=== PATIENT | female | born 1975 | race Caucasian/White ===

== ENCOUNTER 2019-06-05 06:05 | Outpatient (CLI) | payer SELFPAY ==
--- NOTE | 2019-06-05 07:21 | ECG_ITS ---
NAME OF STUDY: LEXISCAN SESTAMIBI STRESS TEST INDICATION: Chest Pain, PROCEDURE: At the baseline, the EKG revealed normal sinus rhythm with a poor R wave progression. Possible old anteroseptal PR. The baseline blood pressure was 130/80 mm Hg with a heart rate of76 beats/min. Lexiscan was infused over a period of 20 seconds. A total of 0.4 milligrams of Lexiscan was infused. The stress phase was continued for a total of 5 minutes. Heart rate at the end of the stress phase was 94 with a blood pressure 142/83. The EKG at the peak infusion revealed no significant changes. Sestamibi was injected 20 seconds after the Lexiscan infusion. Blood pressure at the end of the recovery phase was 134/80 with a heart rate of 90 per minute. CONCLUSION: 1. No significant EKG changes with the LexiScan infusion 2. No LexiScan induced chest pain or cardiac arrhythmia 3. Normal blood pressure and heart rate response 4. Sestamibi/sestamibi perfusion scan pending; see separate report. Electronically Signed On 06-06-2019 14:44:59 CDT by Bassem Salazar M.D. [email or web address]
--- NOTE | 2019-06-05 07:22 | NMCV_ITS ---
NM christiano perf SPECT r/s* [id number] Roxie Case Age: 44 Gender: F : 1975 Exam Date: 06/05/2019 08:07 Ordering Phys: Marilyn Carmona MD Technologist: ISAÍAS Prince Exam Location: [facility] Indications: Chest pain STRESS TEST Please see separate stress [facility] for full findings IMAGE PROTOCOL Rest/Stress 1 Lexiscan Day Radiopharmaceutical Dose (mCi) Administration Site Administered by Rest: Tc-99m 10.4 IV ISAÍAS Prince Sestamibi Stress:Tc-99m 32.4 IV ISAÍAS Davenport Sestamibi Rest: 05-Jun-2019 60 Discovery 630 Stress: 05-Jun-2019 45 Discovery 630 0.4mg Lexiscan. Images obtained in supine and prone position. SPECT RESULTS Technical Quality: Good Raw Data Analysis: Breast attenuation Image Corrections: No attenuation or motion correction applied Summed Stress Score: 7 Summed Rest Score: 7 Summed Difference Score: 3 PERFUSION FINDINGS Medium sized perfusion abnormality of mild to moderate severity of mid to apical inferior and apical lateral wall on rest images. There is small area of reversible perfusion abnormality in basal to mid inferior and mid to apical inferoseptal hermosillo on stress images with improved tracer uptake in inferoseptal hermosillo on prone stress images. FUNCTIONAL RESULTS (calculated via Gated SPECT) Stress Image LV EF (%): 40 Stress EDV (mL):100 TID: 1.23 Stress ESV (mL):60 FUNCTIONAL FINDINGS: The left ventricle is normal in size. Transient Ischemia Dilatation of 1.2. There is mildly reduced left ventricular global systolic function. The left ventricular ejection fraction is mildly reduced with a value of 40%. There is mild hypokinesis of inferior wall. IMPRESSIONS 1. Medium sized perfusion abnormality of mild to moderate severity of mid to apical inferior with reversible perfusion abnormality in basal to mid inferior and mid to apical inferoseptal hermosillo. 2. This likely represents attenuation artifact, however old myocardial infarction in right coronary artery territory with small area of brayden-infarct ischemia cannot be completely excluded. 3. The left ventricular ejection fraction is mildly reduced with a value of 40%. 4. There is mild hypokinesis of inferior wall. 5. No prior similar studies to compare. Shannon Ybarra MD (Electronically Signed) Final Date: 08 June 2019 18:48 S
[2019-06-05] MEDS: regadenoson 0.4 Mg/5 ml Syringe IVP (08:54)
[2019-06-05 09:07] VITALS: BP 134/82; PULSE 93
== END 2019-06-05 06:06 | disposition home or self-care (01) ==
PROVIDERS: Family Provider Internal Medicine; PCP Internal Medicine; Visit Provider Internal Medicine
DX: R07.9 Chest pain, unspecified (principal)
CPT/HCPCS: 78452; 93017; A9500; J2785

== ENCOUNTER 2019-08-28 10:57 | Outpatient (CLI) | payer SELFPAY ==
--- NOTE | 2019-08-28 11:02 | USCV_ITS ---
Roxie Case Age: 44 Gender: F : 1975 Exam Date: 08/28/2019 11:09 Ordering Phys: Marilyn Carmona MD Technologist: Marce Bai Exam Location: [facility] [place] Indication: SOB BP: 100 / 56 HR: 84 Rhythm: Sinus Technical Quality: Adequate MEASUREMENTS (Male / Female) Normal Values 2D ECHO LV Diastolic Diameter PLAX 3.6 cm 4.2 - 5.9 / 3.9 - 5.3 cm LV Systolic Diameter PLAX 2.8 cm LV Chamber Size 2.9 cm IVS Diastolic Thickness 1.0 cm 0.6 - 1.0 / 0.6 - 0.9 cm IVS Systolic Thickness 1.3 cm LVPW Diastolic Thickness 1.4 cm 0.6 - 1.0 / 0.6 - 0.9 cm LVPW Systolic Thickness 1.5 cm RV Chamber Size 3.4 cm LVOT Diameter 2.0 cm LV Ejection Fraction 2D Teich 44.3 % LV Ejection Fraction MOD 2C 55.2 % LV Ejection Fraction 2C AL 59.0 % LA Diameter 4.2 cm LA Width 2.7 cm LA Height 3.7 cm RA Width 4.2 cm RA Height 2.8 cm Aorta at Sinotubular Diameter 2.3 cm M-MODE LV Diastolic Diameter MM 5.0 cm 4.2 - 5.9 / 3.9 - 5.3 cm LV Systolic Diameter MM 3.5 cm LV Ejection Fraction MM Teich 57.5 % IVS Diastolic Thickness MM 1.4 cm 0.6 - 1.0 / 0.6 - 0.9 cm IVS Systolic Thickness MM 1.5 cm LVPW Diastolic Thickness MM 1.1 cm 0.6 - 1.0 / 0.6 - 0.9 cm LVPW Systolic Thickness MM 1.3 cm Aortic Annulus Diameter 3.4 cm LA Ao Ratio MM 1.2 MV E Point Septal Separation 0.8 cm DOPPLER AV Peak Velocity 156.0 cm/s LVOT Peak Velocity 121.0 cm/s AV Area Cont Eq vti 2.4 cm squared AV Area Cont Eq pk 2.4 cm squared MV Area PHT 5.0 cm squared Mitral E to A Ratio 0.8 MV E' Velocity 68.0 cm/s Mitral E to MV E' Ratio 4.6 Mitral E to LV E' Lateral Ratio 4.9 Mitral E to LV E' Septal Ratio 4.4 TR Peak Velocity 215.0 cm/s TR Peak Gradient 18.6 mmHg TV Peak E Velocity 62.0 cm/s Right Atrial Pressure 3.0 mmHg Pulmonary Artery Systolic Pressu 21.5 mmHg PV Peak Velocity 70.0 cm/s RV Acceleration Time 0.1 s RV Ejection Time 0.3 s RV AcT/ET 0.4 FINDINGS Left Ventricle Normal left ventricular size and systolic function, EF 58 %. No regional wall motion abnormalities. Right Ventricle The right ventricle is normal in size and function. Right Atrium The right atrium is normal in size. Left Atrium The left atrium is normal in size. Mitral Valve No gross abnormalities noted Aortic Valve Appears to be tricuspid with no significant abnormalities Tricuspid Valve No significant abnormalities Pulmonic Valve No gross abnormalities noted Pericardium Normal pericardium without effusion. Aorta Normal ascending aorta dimension. CONCLUSIONS Normal left ventricular size and systolic function, EF 58 %. No regional wall motion abnormalities. No significant stenotic or ureteral lesions Normal cardiac chamber sizes There is no pericardial effusion. There are no intracardiac masses. No previous study is available for comparison. Dr Bassem Salazar MD FACC (Electronically Signed) Final Date: 28 August 2019 16:14 S
== END 2019-08-28 10:58 | disposition home or self-care (01) ==
LOC: RAD 10:59
PROVIDERS: PCP Internal Medicine; Visit Provider Internal Medicine
DX: R06.02 Shortness of breath (principal)
CPT/HCPCS: 93306

== ENCOUNTER 2020-12-30 07:19 | Outpatient (CLI) | payer MEDICAID, SELFPAY ==
--- NOTE | 2020-12-30 07:22 | MM_ITS ---
WS: [id number] BILATERAL DIGITAL SCREENING MAMMOGRAPHY WITH CAD CLINICAL INFORMATION: SCREENING HISTORY: Screening mammogram. Bilateral breast soreness COMPARISON: TECHNIQUE: Bilateral CC and MLO views. FINDINGS: Scattered fibroglandular densities bilaterally. Punctate and lucent centered calcifications are stabl e. No suspicious focal mass, asymmetry, calcifications, or architectural distortion. No evidence of m alignancy. MM/[place] [id number] IMPRESSION: BI-RADS: 2-Benign FOLLOW UP: 1 Year Follow-up Recommend return to annual screening mammography.
== END 2020-12-30 07:20 | disposition home or self-care (01) ==
LOC: RADSHAW 07:21
PROVIDERS: PCP Internal Medicine; Visit Provider Internal Medicine
DX: Z12.31 Encounter for screening mammogram for malignant neoplasm of breast (principal)
CPT/HCPCS: 77067

== ENCOUNTER → 2021-01-27 14:14 | Outpatient (BNVA) | payer MEDICAID, SELFPAY | PROVIDERS: PCP Internal Medicine; Visit Provider Obstetrics & Gynecology | DX: N87.1 Moderate cervical dysplasia (principal) | CPT/HCPCS: 88305; 88307 ==

== ENCOUNTER → 2021-04-07 16:06 | Outpatient (BNVA) | payer MEDICAID, SELFPAY | PROVIDERS: PCP Internal Medicine; Visit Provider Obstetrics & Gynecology | DX: Z20.822 Contact with and (suspected) exposure to COVID-19 (principal) | CPT/HCPCS: 87635 ==

== ENCOUNTER 2021-04-25 12:46 | Observation (INO) | payer MEDICAID, SELFPAY ==
[2021-04-24 13:37] VITALS: BMI 37.8
[2021-04-25] VITALS (20 sets, daily range): BP systolic 103–153; BP diastolic 63–106; PULSE 74–101; RESP 10–18; TEMP 36.1–36.9; O2SAT 96–100
--- NOTE | 2021-04-25 06:25 | P.ANESASSM_ITS ---
Pre-Anesthetic Assessment Height/Weight: Height 1.63 m Weight 99.79 kg Preop Diagnosis: high grade dysplasia of cervix Operation Date: 03/28/21 07:50 Proposed Procedures p Laparoscopic Assist Vaginal Hysterectomy 91075 R87.612(Not Applicable) - Irais Marin MD Operation Date: 04/25/21 07:00 Proposed Procedures p Laparoscopic Assist Vaginal Hysterectomy(Not Applicable) - Irais Marin MD Familial anesthetic complications: Post op shivering Was Beta Andre taken within 24 hours: N/A Was Clonidine taken within 24 hours: N/A Last intake: > 8hrs Social No alcohol and No tobacco Exam alert, oriented x 3, clear to auscultation bilaterally and regular rate & rhythm Airway Cervical ROM: within normal limits Mallampati: Class II Dentition: full Pulmonary Chronic Obstructive Pulmonary Disease (hasn't required inhaler use in over 1 year) CV/HEM Hypertension Echo 2019 CONCLUSIONS ?Normal left ventricular size and systolic function, EF 58 %. ?No regional wall motion abnormalities. ?No significant stenotic or ureteral lesions ?Normal cardiac chamber sizes ?There is no pericardial effusion. ?There are no intracardiac masses. ?No previous study is available for comparison. myocardial perfusion scan 2019 IMPRESSIONS ?1. Medium sized perfusion abnormality of mild to moderate severity of mid to ?apical inferior with reversible perfusion abnormality in basal to mid? inferior ?and mid to apical inferoseptal hermosillo. ?2. This likely represents attenuation artifact, however old myocardial ?infarction in right coronary artery territory with small area of brayden-infarct ?ischemia cannot be completely excluded. ?3. The left ventricular ejection fraction is mildly reduced with a value of ?40%. ?4. There is mild hypokinesis of inferior wall. ?5.? No prior similar studies to compare. sestamibi stress test 2019 CONCLUSION: 1. No significant EKG changes with the LexiScan infusion 2. No LexiScan induced chest pain or cardiac arrhythmia 3. Normal blood pressure and heart rate response 4. Sestamibi/sestamibi perfusion scan pending; see separate report. Metabolic Diabetes Mellitus Anesthetic Plan ASA status: 3 Anesthesia: General Medications/Allergies Home Medications Medication Instructions Recorded Confirmed Last Taken Type atorvastatin 20 mg tablet 20 mg PO DAILY 04/22/20 04/24/21 04/24/21 History lovastatin 20 mg tablet 20 mg PO DAILY 0204/24/21 04/24/21 History propranolol 20 mg tablet 20 mg PO BID 04/22/20 04/24/21 04/24/21 History sertraline 50 mg tablet 50 mg PO DAILY 04/22/20 04/24/21 04/24/21 History hydrochlorothiazide 12.5 mg tablet 12.5 mg PO DAILY 01/02/21 04/24/21 04/24/21 History lisinopril 5 mg tablet 2.5 mg PO DAILY 01/02/21 04/24/21 04/24/21 History metformin 500 mg tablet 500 mg PO BID 01/02/21 04/24/21 04/24/21 History cholecalciferol (vitamin D3) 10 10 mcg PO DAILY 04/25/21 04/25/21 04/24/21 History mcg (400 unit) capsule (Vitamin D3) Allergies Allergy/AdvReac Type Severity Reaction Status Date / Time No Known Allergies Allergy Verified 04/24/21 17:05 [facility] Anesthesia Medical History Anxiety Depression Diabetes Hyperlipidemia Hypertension Surgical History History of bilateral tubal ligation has essure in fallopian tubes--could not find in system History of History of colonoscopy History of endometrial ablation 2013 History of knee surgery Family History Mother Diabetes Heart disease Hypertension Breast cancer Hyperlipidemia Father Degenerative disc disease Diabetes Heart disease Hyperlipidemia Hypertension Grandmother Stroke Paternal Denies family history of CAD (coronary artery disease) Clotting disorder Chronic kidney disease (CKD) Bleeding disorder Thyroid disease Female Reproductive History Date of last menstrual period: 11/29/20 Data Anesthesia Cardiac Studies: Echocardiogram Ultrasound 08/28/19 Sestamibi Stress Test (Cardiology) 06/05/19
[2021-04-25] MEDS: sodium chloride 0.9% 1,000 ML 30 ML IV (06:28)
[2021-04-25] MEDS: acetaminophen 1,000 MG/100 ML PIGGYBACK 400 MG IV (06:32)
[2021-04-25] MEDS: phenazopyridine 100 mg Tablet 200 MG PO (06:40)
[2021-04-25] MEDS: CELEcoxib 200 mg Capsule 400 MG PO (06:40)
[2021-04-25] MEDS: gabapentin 300 mg Capsule PO (06:40)
[2021-04-25 06:49] LABS: Glucose Point of Care 183 mg/dL (70-110)
[2021-04-25 07:00] LABS: Basophils % 0.5 %; Eosinophils # 0.1 10^3/uL (0.0-0.8); Eosinophils % 1.4 %; Hematocrit 44.2 % (37.0-47.0); Hemoglobin 14.4 g/dL (11.5-15.3); Lymphocytes # 1.4 10^3/uL (0.8-4.8); Lymphocytes % 23.7 %; Mean Corpuscular HGB Conc 32.6 g/dL (30.0-36.0); Mean Corpuscular Hemoglobin 28.7 pg (28.0-34.0); Mean Corpuscular Volume 88.2 fl (81-99); Mean Platelet Volume 9.2 fL (7.4-10.4); Monocytes # 0.4 10^3/uL (0.2-0.9); Monocytes % 7.4 %; Neutrophils # 3.83 10^3/uL (1.8-7.7); Neutrophils % 66.3 %; Nucleated Red Blood Cells % 0 %; Platelet Count 312 10^3/cmm (130-400); Red Blood Count 5.01 10^6/uL (4.1-5.3); Red Cell Distribution Width 12.8 % (12.1-15.1); White Blood Count 5.8 10^3/uL (4.0-10.0)
[2021-04-25] MEDS: scopolamine 1.5 Patch 1 PATCH TRANSDERMA (07:02)
--- NOTE | 2021-04-25 07:02 | W.PM.OPSUD ---
Surgery/Procedure H&P Update DATE OF PROCEDURE: April 25, 2021 DATE H&P PERFORMED: 04/07/21 CHANGES TO PREVIOUS DOCUMENTATION: The patient has had covid and recovered PREOP DIAGNOSIS: high grade dysplasia of cervix PLANNED PROCEDURE: Operation Date: 03/28/21 07:50 Proposed Procedures p Laparoscopic Assist Vaginal Hysterectomy 34185 R87.612(Not Applicable) - Irais Marin MD Operation Date: 04/25/21 07:00 Proposed Procedures p Laparoscopic Assist Vaginal Hysterectomy(Not Applicable) - Irais Marin MD Related Problem List Diagnoses (1) Dysplasia of cervix, high grade DARLEEN 2:
[2021-04-25 07:06] LABS: OR HCG Qualitative Urine Negative (Negative)
[2021-04-25 07:22] LABS: Anion Gap 17.8 (5-19); Blood Urea Nitrogen 15 mg/dL (6-20); Calcium 9.8 mg/dL (8.5-10.5); Carbon Dioxide 22 mmol/L (22-29); Chloride 100 mmol/L (98-107); Glomerular Filtration Rate 107.6 mL/min (90-130); Glucose 202 mg/dL (65-115); Osmolality Calculated 289 mOsm/kg (285-295); Potassium 3.8 mmol/L (3.5-5.1); Sodium 136 mmol/L (136-145)
--- NOTE | 2021-04-25 08:34 | SUR.OPER ---
Called and notified SO of surgical progress.
--- NOTE | 2021-04-25 09:33 | PM.OP ---
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 Marin after she started the case patient was already intubated prepped and draped and was placed in lithotomy position. And had 5 mmtrochars placed at the infraumbilical and bilateral lower abdominal sites. The planned procedure for laparoscopic vaginal assisted hysterectomy. Apparently after gaining access to the abdominal cavity noticed to have extensive adhesions between the fundic fibroid-like structure/mass of the uterus with adhesions towards the posterior aspect of the growth and the sigmoid colon as well as on the bilateral pelvic hermosillo. I did scrub in and I added left-sided abdominal 5 mm trocar under direct visualization. I started taking adhesions down and per history there is no known history of colon cancer and no clear evidence of previous diverticulitis. Sharp and blunt dissection to take adhesions down without violating the integrity of the colon or the uterus/Adnexa. Alternating days between LigaSure device and laparoscopic sharp scissors. Exceeding 1 hour of the operative time with extensive adhesiolysis I was able to take down all the relevant adhesions and freed it from the uterus including the fundic mass and bilateral adnexal components from the surrounding adhesions. Suction irrigation was obtained and I was able to test the colon segment under saline to rule out any potential leak and there was no evidence of injuries or perforations or bleeding except for some minor oozing towards the left lateral pelvic wall were 5 mm clips were applied under direct visualization for completion hemostasis Through the entire part of my procedure urine maintained to be adequate nonbloody. Final look laparoscopy showed no injuries or bleeding and at that point I handed the case over to Dr. Marin to accomplish her part. Please find a separate dictation for Dr. Marin for her part of the procedure
[2021-04-25] MEDS: vasopressin 20 unit/mL INJ INJECTION (10:06)
--- NOTE | 2021-04-25 11:29 | P.OP_ITS ---
Operative Report Date of procedure: April 25, 2021 Pre-op diagnosis: Preop Diagnosis high grade dysplasia of cervix Preop Diagnosis high-grade cervical dysplasia Post-op diagnosis: same, extensive bowel adhesions, normal appearing tubes and ovaries Procedure done: laparoscopic assisted vaginal hysterectomy, right salpingectomy, cystoscopy Specimens removed/disposition: uterus, right fallopian tube to pathology Surgeon: Tania Anesthesia: General Estimated blood loss (mL): 375 Estimated blood loss: 375 my portion of surgery [address] Mendez portion IV fluids (mL): 2,000 Urine output (mL): 175 Complications: none Findings: uterus and adnexae encased in bowel. large pedunculated fibroid Brief History: The patient presented initially for a high grade dysplasia. She had a leep procedure performed and decided to have a hysterectomy to decrease her chances of cervical cancer Procedure: The patient was taken to the operating room where general anesthesia was administered and found to be adequate. She was prepped and draped in the normal sterile fashion in the dorsal lithotomy position in [facility]. A Anthony catheter was placed. A weighted speculum was placed into the vagina and the anterior lip of the cervix was grasped with a single tooth tenaculum. The Zumi uterine manipulator was placed. The weighted speculum was removed. The gloves were changed and attention was turned to the abdomen. A 5 mm infraumbilical incision was made. Using a 5 mm port with the camera, the port was placed into the abdomen. The abdomen was insufflated. Two low, lateral 5 mm ports were placed on the left and right under direct visualization from the camera. There were extensive adhesions of the bowel to the uterus and the bilateral adnexae. General surgery, Dr. Mendez was called. He presented and took down the adhesions. Please see separate report. After the adhesions had been taken down, The right tube was grasped and elevated. Using the laparoscopic cautery, the mesosalpinx was divided between the ovary and tube. The tube was removed. The uteroovarian ligaments as well as the round ligaments were ligated bilaterally. The left fallopian tube was encased in adhesion. She had a lot of oosing. for this reason, I chose to leave the left fallopian tube. There had already been extensive adhesion removal at this site and I didn't want to cause additional trauma and bleeding. Noted that there were essure coils present. Attention was then turned to the vaginal portion of the procedure. The weighted speculum was placed into the vagina. The zumi manipulator was removed. The single tooth tenaculum was removed and replaced with the ciarra's tenaculum. 10 mL of dilute Pitressin was injected at the vesicovaginal junction. A circumferential incision was made at the vesicovaginal junction and the vaginal mucosa reflected cephalad. The posterior peritoneum was entered sharply with the Metzenbaum scissors and the long weighted speculum replaced. Using the Lyla clamps the uterosacral ligaments were clamped cut and suture- ligated. The anterior peritoneum was entered sharply with the metzenbaum scissors. Then sequentially the uterine arteries and cardinal ligaments were clamped cut and suture-ligated. A single-tooth tenaculum was used to deliver the uterus. The remaining segement of the utero-ovarian ligaments were clamped cut and suture-ligated bilaterally and the specimen was removed. There was good hemostasis with only mild bleeding from the cuff. The peritoneum was closed with a pursestring using 2-0 monocryl. The vaginal cuff was closed with 0 Vicryl in a running locked pattern incorporating the uterosacral ligaments into the lateral aspects of the vaginal cuff. The Anthony catheter was removed and the cystoscope advanced into the bladder. The patient was given pyridium and bilateral spill was noted. There were no injuries or deficits noted in the bladder. The cystoscope was removed and the Anthony was replaced. Vaginal packing was placed for good hemostasis. 10ml of dilute pitressin was injected at the abdominal trocar sites, after they were removed. They were closed with 2-0 monocryl. The patient tolerated the procedure well. Sponge lap and needle counts were correct x3. She was taken to the recovery room in stable condition.
--- NOTE | 2021-04-25 12:19 | W.PM.OPSUD ---
Surgery/Procedure H&P Update DATE OF PROCEDURE: April 25, 2021 DATE H&P PERFORMED: 04/07/21 H&P UPDATE INFORMATION: I have reviewed H&P completed within last 30 days, I have examined patient prior to procedure and No changes to prior documentation PREOP DIAGNOSIS: high grade dysplasia of cervix PLANNED PROCEDURE: Operation Date: 03/28/21 07:50 Proposed Procedures p Laparoscopic Assist Vaginal Hysterectomy [id number] R87.612(Not Applicable) - Irais Marin MD Operation Date: 04/25/21 07:00 Proposed Procedures p Laparoscopic Assist Vaginal Hysterectomy(Not Applicable) - Irais Marin MD
[2021-04-25] MEDS: HYDROcodone-acetaminophen 5-325 mg Tablet PO (13:05)
[2021-04-25] MEDS: ketorolac 30 mg/mL INJ IVP ×2 (13:06→19:56)
[2021-04-25] MEDS: lactated ringers 1,000 ML 125 ML IV ×2 (13:36→22:09)
--- NOTE | 2021-04-25 15:27 | ANE.PACU2 ---
Inpatient post-anesthesia follow up: Airway intact: Yes Vital signs: Temperature 98.0 F Pulse Rate 89 Respiratory Rate 16 Blood Pressure 115/75 Pulse Oximetry 97 Oxygen Delivery Me thod Room Air Oxygen Flow Rate 4 Fraction of Inspir ed Oxygen Hydration adequate: Yes Nausea and vomiting: No Pain level: 3 Mental status: Baseline
[2021-04-25] MEDS: metformin 500 mg Tablet PO (17:42)
[2021-04-25] MEDS: docusate sodium 100 mg Capsule PO (17:42)
[2021-04-25] MEDS: propranolol 20 mg Tablet PO (18:05)
[2021-04-26] MEDS: ketorolac 30 mg/mL INJ IVP (02:02)
[2021-04-26 04:00] VITALS: BP 112/67; PULSE 75; RESP 16; TEMP 36.7; O2SAT 96
[2021-04-26 05:34] LABS: Hematocrit 31.2 % (37.0-47.0); Hemoglobin 9.9 g/dL (11.5-15.3); Mean Corpuscular HGB Conc 31.7 g/dL (30.0-36.0); Mean Corpuscular Hemoglobin 28.8 pg (28.0-34.0); Mean Corpuscular Volume 90.7 fl (81-99); Mean Platelet Volume 9.2 fL (7.4-10.4); Platelet Count 278 10^3/cmm (130-400); Red Blood Count 3.44 10^6/uL (4.1-5.3); Red Cell Distribution Width 13.2 % (12.1-15.1); White Blood Count 12.4 10^3/uL (4.0-10.0)
[2021-04-26] MEDS: lisinopril 5 mg Tablet 2.5 MG PO (08:18)
[2021-04-26] MEDS: propranolol 20 mg Tablet PO (08:19)
[2021-04-26] MEDS: atorvastatin 40 mg Tablet 20 MG PO (08:19)
[2021-04-26] MEDS: sertraline 50 mg Tablet PO (08:20)
[2021-04-26] MEDS: metformin 500 mg Tablet PO (08:21)
[2021-04-26] MEDS: hydroCHLOROthiazide 25 mg Tablet 12.5 MG PO (08:21)
[2021-04-26] MEDS: docusate sodium 100 mg Capsule PO (08:22)
[2021-04-26] MEDS: ibuprofen 800 mg tablet PO (08:22)
[2021-04-26 08:23] VITALS: BP 101/69; PULSE 89; RESP 18; TEMP 36.7; O2SAT 97
--- NOTE | 2021-04-26 09:47 | P.DS_ITS ---
Discharge Providers Date of Admission: 04/25/21 12:46 Date of Discharge: April 26, 2021 Attending Provider at Admission: Irais Marin MD Attending Provider at Discharge: Irais Marin MD Primary Care Provider: Marilyn Carmona MD Diagnoses at Discharge Discharge Diagnosis (1) Dysplasia of cervix, high grade DARLEEN 2: Status: Acute Reason for Visit Reason for Visit: HGSIL Hospital Course Hospital Course The patient was admitted for surgery. She did well postoperatively and was ready for discharge on POD#1 Physical Exam Narrative: The patient has no concerns today. Her pino catheter and vaginal packing have been removed. Const: COMMON NORMALS: no acute distress, patient oriented x3, no limitations, healthy appearing, alert and well nourished GENERAL APPEARANCE: cooperative, comfortable, well kempt and well developed ORIENTATION/CONSCIOUSNESS: Yes awake, Yes oriented to person, Yes oriented to place and Yes oriented to time Resp: COMMON NORMALS: normal respiratory effort EFFORT & INSPECTION: Yes able to speak in complete sentences GI: COMMON NORMALS: Soft to palpation and non-tender PALPATION: Yes Soft to palpation Extremity: COMMON NORMALS: no calf tenderness Neuro: COMMON NORMALS: patient oriented x3 SENSORIUM/ORIENTATION: Yes alert, Yes oriented to person, Yes oriented to place and Yes oriented to time Psych: APPEARANCE: Yes well kempt Urinary Catheter Management: Pino: Cath Placed During This Visit: yes, but has since been removed by the nurse Reason for Continuing Indwelling Catheter: Decision to DC Catheter Urinary Catheter Date of Insertion: 04/25/21 Urinary Catheter Time of Insertion: 07:37 Date Urinary Catheter Removed: 04/26/21 Time Urinary Catheter Discontinued: 05:15 Discharge Data Studies Completed and Pending Pending at discharge Category Date Time Status ES surgery / GI images Routine Exams 04/25/21 06:42 Taken Urine Culture Routine Lab 04/25/21 07:40 Results Cytology [PTH] Routine Pth 04/25/21 10:03 Received Pathology: Surgical [PTH] Routine Pth 04/25/21 10:32 Ordered Laboratory Results WBC 12.4 10^3/uL (4.0-10.0) H 04/26/21 05:11 RBC 3.44 10^6/uL (4.1-5.3) L 04/26/21 05:11 Hgb 9.9 g/dL (11.5-15.3) L D 04/26/21 05:11 Hct 31.2 % (37.0-47.0) L 04/26/21 05:11 MCV 90.7 fl (81-99) 04/26/21 05:11 MCH 28.8 pg (28.0-34.0) 04/26/21 05:11 MCHC 31.7 g/dL (30.0-36.0) 04/26/21 05:11 RDW 13.2 % (12.1-15.1) 04/26/21 05:11 Plt Count 278 10^3/cmm (130-400) 04/26/21 05:11 MPV 9.2 fL (7.4-10.4) 04/26/21 05:11 Neut % (Auto) 66.3 % 04/25/21 06: Lymph % (Auto) 23.7 % 04/25/21 06:28 [place] % (Auto) 7.4 % 04/25/21 06:28 Eos % (Auto) 1.4 % 04/25/21 06:28 Baso % (Auto) 0.5 % 04/25/21 06:28 Neut # (Auto) 3.83 10^3/uL (1.8-7.7) 04/25/21 06:28 Lymph # (Auto) 1.4 10^3/uL (0.8-4.8) 04/25/21 06:28 [place] # (Auto) 0.4 10^3/uL (0.2-0.9) 04/25/21 06:28 Eos # (Auto) 0.1 10^3/uL (0.0-0.8) 04/25/21 06:28 Baso # (Auto) 0.0 10^3/uL (0.0-0.1) 04/25/21 06:28 Nucleated RBC % (auto) 0 % 04/25/21 06: Nucleated RBCs # 0.0 /100WBC 04/25/21 06:28 Sodium 136 mmol/L (136-145) 04/25/21 06:28 Potassium 3.8 mmol/L (3.5-5.1) 04/25/21 06:28 Chloride 100 mmol/L (98-107) 04/25/21 06:28 Carbon Dioxide 22 mmol/L (22-29) 04/25/21 06:28 Anion Gap 17.8 (5-19) 04/25/21 06:28 BUN 15 mg/dL (6-20) 04/25/21 06:28 Creatinine 0.6 mg/dL (0.5-0.9) 04/25/21 06:28 GFR Calculation 107.6 mL/min (90-130) 04/25/21 06:28 Glucose 202 mg/dL (65-115) H 04/25/21 06:28 POC Glucose 183 mg/dL (70-110) H 04/25/21 06:45 Calculated Osmolality 289 mOsm/kg (285-295) 04/25/21 06:28 Calcium 9.8 mg/dL (8.5-10.5) 04/25/21 06:28 Urine HCG, Qual Negative (Negative) 04/25/21 06:03 Blood Type A Negative 04/25/21 06:28 Rho(D) Type Negative 04/25/21 06:28 Antibody Screen Negative 04/25/21 06:28 Vitals Last Vital Signs Temp 98.1 F 04/26/21 08:23 Pulse 89 04/26/21 08:23 Resp 18 04/26/21 08:23 BP 101/69 04/26/21 08:23 Pulse Ox 97 04/26/21 08:23 Discharge Plan Discharge Patient Disposition: Home Condition: Stable Prescriptions: New ibuprofen 800 mg Tablet 800 mg PO Q8H Qty: 40 0RF hydrocodone-acetaminophen 5-325 mg Tablet 1 tab PO Q4H PRN (Reason: Moderate To Severe Pain) Qty: 20 0RF docusate sodium 100 mg Capsule 100 mg PO BID Qty: 60 0RF Continued hydrochlorothiazide 12.5 mg tablet 12.5 mg PO DAILY 0RF metformin 500 mg tablet 500 mg PO BID 0RF lisinopril 5 mg tablet 2.5 mg PO DAILY 0RF lovastatin 20 mg tablet 20 mg PO DAILY 0RF sertraline 50 mg tablet 50 mg PO DAILY 0RF propranolol 20 mg tablet 20 mg PO BID 0RF atorvastatin 20 mg tablet 20 mg PO DAILY 0RF Vitamin D3 10 mcg (400 unit) Capsule 10 mcg PO DAILY 0RF Discharge Orders: Discharge Order (Routine); Ordered 04/26/21 Ordered By: Irais Marin Referrals: Irais Marin MD [Physician] - 05/01/21 12:45 pm (Your 1 week post-operative appointment is scheduled for 05/01/21 @12:45. Your 6 week post-operative appointment is scheduled for 06/05/21 @1:45. ) Patient Instructions: Laparoscopic Hysterectomy (DC), OB Abdominal Surgery - [facility], OB Discharge Report, OB Food/Drug Interaction Guide, Opioid Safety Discharge Attestations Time Spent in Discharge Care*: less than 30 min Quality Metrics Clinical Quality Measures [ No reported AMI, CVA or VTE this stay] Coding Level of Care Code Acute Chg FW DC note Diagnoses Dysplasia of cervix, high grade DARLEEN 2 N87.1
[2021-04-26 09:56] VITALS: BP 101/69; PULSE 89; RESP 18; TEMP 36.7; O2SAT 97
== END 2021-04-26 09:58 | disposition home or self-care (01) ==
LOC: OBGYN 12:47
PROVIDERS: Anesthesiology; Admitting Provider Obstetrics & Gynecology; PCP Internal Medicine; Visit Provider Obstetrics & Gynecology
PROC: 0UT9FZZ Resection of Uterus, Via Natural or Artificial Opening With Percutaneous Endoscopic Assistance (ICD-10-PCS; CPT 58552; principal; 2021-04-25 07:00)
PROC: (CPT 58552; 2021-04-25 07:00)
DX: N87.1 Moderate cervical dysplasia (principal); N73.6 Female pelvic peritoneal adhesions (postinfective); J44.9 Chronic obstructive pulmonary disease, unspecified; I10 Essential (primary) hypertension; E11.9 Type 2 diabetes mellitus without complications; Z79.84 Long term (current) use of oral hypoglycemic drugs; F41.9 Anxiety disorder, unspecified; F32.9 Major depressive disorder, single episode, unspecified; E78.5 Hyperlipidemia, unspecified; Z82.49 Family history of ischemic heart disease and other diseases of the circulatory system; Z83.3 Family history of diabetes mellitus
CPT/HCPCS: 58552; 36415; 36416; 80048; 81025; 82962; 84703; 85025; 85027; 86850; 86900; 87086; 88112; 88305; 88307; 96365; G0378; J0690; J1100; J1200; J1885; J2250; J2405; J2704; J2710; J3010; J3490; J7030

== ENCOUNTER 2021-06-15 09:24 | Outpatient (CLI) | payer MEDICAID, SELFPAY ==
--- NOTE | 2021-06-15 09:30 | CT_ITS ---
WS: [id number] CT ABDOMEN PELVIS TECHNIQUE: Contrast-enhanced CT of the abdomen and pelvis with coronal and sagittal reformatted image s. CLINICAL INFORMATION: R10.9 - Unspecified abdominal pain COMPARISON: CT 2014 DLP: 1138.[address] scans at [facility] use at least one of these dose optimization techniques: automated e xposure control; mA and/or kV adjustment per patient size (includes targeted exams where dose is matc hed to clinical indication); or iterative reconstruction. FINDINGS: Diffuse soft tissue thickening involving the sigmoid colon with surrounding induration and inflammato ry stranding compatible with acute diverticulitis. No evidence of drainable abscess or fluid collecti on. Prior hysterectomy. Multilobulated RIGHT ovarian cystic lesion measuring 5.0 x 4.2 cm. Additional LEFT partially calcifie d LEFT ovarian lesion measuring 4.5 x 3.0 CM. This can be followed up with ultrasound. No free fluid in the pelvis. Diffuse fatty infiltration liver. Normal portal vein and splenic vein. Normal gallbladder. Normal GE junction. Normal spleen. RIGHT adrenal gland is normal. LEFT adrenal lesion likely adenoma is stable compared to 2014 measuring 1.8 cm. Normal portal vein and splenic vein. Small esophageal hiatal herni a. Lung bases are well aerated. Tiny noncalcified nodule LEFT lower lobe medially measuring 3 mm. Normal pancreatic parenchymal enhancement. Celiac and SMA are patent. Normal caliber abdominal aorta. Tiny fat-containing umbilical hernia. No abdominal or pelvic lymphadenopathy. No inguinal lymphadeno lea. CT/CT abdomen pelvis w con* [id number] IMPRESSION: 1. Diffuse thickening with inflammatory stranding about the sigmoid colon comp atible with acute diverticulitis. Recommend follow-up to resolution. 2. No evidence of drainable abscess or fluid collection. 3. Lobulated multicystic RIGHT ovarian lesion measuring 5.0 x 2.9 CM. Addition al partially calcified LEFT ovarian lesion measuring 2.9 x 4.6 CM. Both of thes e lesions are new from 2014. Recommend further evaluation with ultrasound. 4. Interval postoperative changes hysterectomy. 5. No free fluid in the pelvis. 6. Incidental fat-containing umbilical hernia. 7. Diffuse fatty infiltration liver. 8. Tiny noncalcified nodule LEFT lower lobe medially measuring 3 mm. Notified Karan Mendez MD at 06/15/2021 12:28 PM.
[2021-06-15] MEDS: iohexol 350 mg/mL 100 mL Btl IV (09:44)
[2021-06-15] MEDS: iohexol 300 mg/mL 50 mL Btl PO (09:44)
== END 2021-06-15 09:25 | disposition home or self-care (01) ==
LOC: RAD 09:25
PROVIDERS: PCP Internal Medicine; Visit Provider Surgery
DX: N89.8 Other specified noninflammatory disorders of vagina (principal); N83.201 Unspecified ovarian cyst, right side; Z90.710 Acquired absence of both cervix and uterus; K42.9 Umbilical hernia without obstruction or gangrene; K76.0 Fatty (change of) liver, not elsewhere classified; R91.1 Solitary pulmonary nodule
CPT/HCPCS: 74177

== ENCOUNTER → 2021-06-21 13:48 | Outpatient (BNVA) | payer MEDICAID, SELFPAY | PROVIDERS: PCP Internal Medicine; Visit Provider Surgery | DX: K57.32 Diverticulitis of large intestine without perforation or abscess without bleeding (principal); F17.210 Nicotine dependence, cigarettes, uncomplicated | CPT/HCPCS: 99213 ==

== ENCOUNTER 2021-09-27 08:07 | Day surgery (SDC) | payer MEDICAID, SELFPAY ==
[2021-09-22 10:07] VITALS: BMI 37.8
[2021-09-27 08:33] VITALS: BP 112/89; PULSE 74; RESP 18; TEMP 36.3; O2SAT 97
[2021-09-27] MEDS: sodium chloride 0.9% 1,000 ML 30 ML IV (08:43)
--- NOTE | 2021-09-27 09:28 | W.PM.OPSFHP ---
Same Day Surgery H&P Indication for Procedure/HPI DATE OF PROCEDURE: September 27, 2021 CHIEF COMPLAINT/INDICATIONFOR SURGICAL PROCEDURE: Bleeding per rectum PREOP DIAGNOSIS: Bleeding per rectum PLANNED PROCEDURE: Operation Date: 09/27/21 09:45 Proposed Procedures p EGD w/ poss dialtion,colonoscopy 09445,35042,21332,K92.1,R13.10(Not Applicable) - Karan Mendez MD s Colonoscopy(Not Applicable) - Karan Mendez MD 05/24/2021 This is a pleasant 46 years old female patient.? Undergone a diagnostic laparoscopy and extensive adhesiolysis based on intraoperative consultation from Dr. Marin with a planned procedure for laparoscopic vaginal assisted total abdominal hysterectomy 04/25/2021? As I was consulted intraoperatively to take adhesions down to clear the field as particular adhesions developed between the uterine fibroid and the sigmoid colon.? That did take place and patient undergone her index procedure and she is in the recovery phase now. Patient comes today as a self-referral as she has been complaining of blood in stool and also she does complain of pain referred to her private part.? Denies any dyspareunia and she reports that she had previous colonoscopies in the past and was told that she has polyps and diverticulosis.? She also complain of dysphagia and difficulty in swallowing and she never had previous upper GI study being done. Patient denies any other constitutional symptoms 06/14/2021 Patient comes today complaining of lower abdominal pain that has been going on for the past few days prior to that she did have vaginal discharge on June 05 and was placed on antimicrobial therapy per gynecology service.? Patient is scheduled to undergo EGD and colonoscopy by me towards the end of June. Today the patient comes escorted by her and her pain has been dull aching mostly towards the lower part of the abdomen, denies any nausea vomiting fevers or chills and she does have history of chronic constipation. 06/21/2021 Patient comes today after she did undergo a CT scan of the abdomen pelvis based on my request that did show acute sigmoid colon diverticulitis yet in a mild form. CT scan findings shown below 1.??Diffuse thickening with inflammatory stranding about the sigmoid colon compatible with acute diverticulitis.?Recommend follow-up to resolution. 2.? No evidence of drainable abscess or fluid collection. 3.? Lobulated multicystic RIGHT ovarian lesion measuring 5.0 x 2.9 CM. Additional partially calcified LEFT ovarian lesion measuring 2.9 x 4.6 CM. Both of these lesions are new from 2013. Recommend further evaluation with ultrasound. 4.? Interval postoperative changes hysterectomy. 5.? No free fluid in the pelvis. 6.? Incidental fat-containing umbilical hernia. 7.? Diffuse fatty infiltration liver. 8.? Tiny noncalcified nodule LEFT lower lobe medially measuring 3 mm. Patient was placed on ciprofloxacin and Flagyl and responded to outpatient conservative treatment, she comes today escorted by her spouse and she feels a whole lot better.? Denies any nausea vomiting fevers or chills or abdominal pain.? She is scheduled for an EGD colonoscopy which cannot be rescheduled in 6 to 8 weeks from the last episode of her diverticulitis.? To minimize potential perforation. 09/27/2021 Patient comes today for diagnostic EGD and colonoscopy ROS All systems have been reviewed negative except as for the above or per problem list. Medications/Allergies* Home Medications Medication Instructions Recorded Confirmed Type atorvastatin 20 mg tablet 20 mg PO DAILY 04/22/20 09/22/21 History propranolol 20 mg tablet 20 mg PO BID 04/22/20 09/22/21 History sertraline 50 mg tablet 50 mg PO DAILY 04/22/20 09/22/21 History hydrochlorothiazide 12.5 mg tablet 12.5 mg PO DAILY 01/02/21 09/22/21 History lisinopril 5 mg tablet 2.5 mg PO DAILY 01/02/21 09/22/21 History metformin 500 mg tablet 500 mg PO BID 01/02/21 09/22/21 History cholecalciferol (vitamin D3) 10 10 mcg PO DAILY 04/25/21 09/22/21 History mcg (400 unit) capsule (Vitamin D3) Allergies/Adverse Reactions Allergy/AdvReac Type Severity Reaction Status Date / Time No Known Allergies Allergy Verified 06/24/21 18:50 Current Medications: Generic Name Dose Route Start Last Admin Trade Name Freq PRN Reason Stop Dose Admin Sodium Chloride 1,000 mls @ 30 mls/hr 09/27/21 08:30 09/27/21 08:43 Sodium Chloride 0.9% IV 09/28/21 08:29 30 mls/hr .Q24H GUANACO Administration Pertinent History/Comorbid Conditions* Medical History (Updated 06/24/21 @ 18:50 by Karan Mendez MD) Anxiety Depression Diabetes Hyperlipidemia Hypertension Surgical History (Updated 06/07/21 @ 12:51 by Irais Marin MD) History of bilateral tubal ligation has essure in fallopian tubes--could not find in system History of History of colonoscopy History of endometrial ablation 2012 History of hysterectomy 04/25/2021 History of knee surgery History of laparoscopy 04/25/2021 Family History (Updated 01/02/21 @ 14:47 by Susy Jacob LPN) Diabetes Mother Father Heart disease Mother Father Hyperlipidemia Mother Father Breast cancer Mother Degenerative disc disease Father Hypertension Mother Father Stroke Grandmother Paternal Denies family history of CAD (coronary artery disease) Clotting disorder Chronic kidney disease (CKD) Bleeding disorder Thyroid disease Social History Smoking and tobacco status: current every day smoker (patient vapes ) Pertinent Exam Findings alert, oriented x 3, regular rate & rhythm and procedure specific exam findings (Abdominal exam nontender nondistended soft) Recommendations Surgery/Procedure today (Diagnostic EGD and colonoscopy) Coding Level of Care Code Acute Records Associate for Chandana Quiroga
--- NOTE | 2021-09-27 10:30 | SUR.OPER ---
ink placed at upper rectal mass bx site
[2021-09-27 10:38] VITALS: BP 118/81; PULSE 81; RESP 18; TEMP 36.1; O2SAT 98
[2021-09-27 10:48] VITALS: BP 128/52; PULSE 70; RESP 18; O2SAT 99
[2021-09-27 11:11] LABS: Basophils % 0.5 %; Eosinophils # 0.1 10^3/uL (0.0-0.8); Eosinophils % 1.3 %; Hematocrit 36.5 % (37.0-47.0); Hemoglobin 11.9 g/dL (11.5-15.3); Lymphocytes % 25.6 %; Mean Corpuscular HGB Conc 32.6 g/dL (30.0-36.0); Mean Corpuscular Hemoglobin 26.7 pg (28.0-34.0); Mean Corpuscular Volume 81.8 fl (81-99); Mean Platelet Volume 9.3 fL (7.4-10.4); Monocytes # 0.3 10^3/uL (0.2-0.9); Monocytes % 8.5 %; Neutrophils # 2.45 10^3/uL (1.8-7.7); Neutrophils % 63.6 %; Nucleated Red Blood Cells % 0 %; Platelet Count 245 10^3/cmm (130-400); Red Blood Count 4.46 10^6/uL (4.1-5.3); Red Cell Distribution Width 13.8 % (12.1-15.1); White Blood Count 3.9 10^3/uL (4.0-10.0)
--- NOTE | 2021-09-27 11:23 | ANE.PACU2 ---
Inpatient post-anesthesia follow up: Airway intact: Yes Vital signs: Temperature 97 F Pulse Rate 70 Respiratory Rate 18 Blood Pressure 128/52 Pulse Oximetry 99 Oxygen Delivery Me thod Room Air Oxygen Flow Rate Fraction of Inspir ed Oxygen Hydration adequate: Yes Nausea and vomiting: No Pain level: 1 Mental status: Baseline
[2021-09-27 11:37] LABS: Carcinoembryonic Antigen 49.5 ng/mL (0.0-4.7)
[2021-09-27 11:48] LABS: Alanine Aminotransferase 24 U/L (0-33); Albumin Level 3.6 g/dL (3.5-5.2); Alkaline Phosphatase 78 IU/L (35-105); Anion Gap 14.3 (5-19); Aspartate Amino Transferase 15 U/L (0-32); Blood Urea Nitrogen 11 mg/dL (6-20); Calcium 8.9 mg/dL (8.5-10.5); Carbon Dioxide 26 mmol/L (22-29); Chloride 101 mmol/L (98-107); Glomerular Filtration Rate 107.6 mL/min (90-130); Glucose 271 mg/dL (65-115); Osmolality Calculated 293 mOsm/kg (285-295); Potassium 4.3 mmol/L (3.5-5.1); Sodium 137 mmol/L (136-145); Total Bilirubin 0.4 mg/dL (0.15-1.2); Total Protein 6.6 g/dL (6.6-8.7)
--- NOTE | 2021-09-28 08:16 | P.ANESASSM_ITS ---
Pre-Anesthetic Assessment Height/Weight: Height 1.63 m Weight 99.79 kg Temp Pulse Resp BP Pulse Ox 97 F L 70 18 128/52 99 09/27/21 10:38 09/27/21 10:48 09/27/21 10:48 09/27/21 10:48 09/27/21 10:48 Preop Diagnosis: Bleeding per rectum Operation Date: 09/27/21 09:45 Proposed Procedures p EGD w/ poss dialtion,colonoscopy 67990,[id number],K92.1,R13.10(Not Applicable) - Karan Mendez MD s Colonoscopy(Not Applicable) - Karan Mendez MD Familial anesthetic complications: none Was Beta Andre taken within 24 hours: N/A Was Clonidine taken within 24 hours: N/A Last intake: Intake Last Liquid Date 09/26/21 Last Liquid Time 21:30 Last Solid Date 09/25/21 Last Solid Time 22:30 Social No alcohol and No tobacco Exam alert, oriented x 3, clear to auscultation bilaterally and regular rate & rhythm Airway Submandibular: within normal limits Cervical ROM: within normal limits Mallampati: Class II Dentition: chipped CV/HEM Hypertension GI Gastroesophageal Reflux Disease Metabolic Diabetes Mellitus and Morbid Obesity Neuropsych Anxiety and Depression Anesthetic Plan ASA status: 3 Anesthesia: MAC Other Pertinent Information This is a late entry for 09/27/21 Medications/Allergies Home Medications Medication Instructions Recorded Confirmed Last Taken Type atorvastatin 20 mg tablet 20 mg PO DAILY 04/22/20 09/22/21 09/26/21 History propranolol 20 mg tablet 20 mg PO BID 04/22/20 09/22/21 09/26/21 History sertraline 50 mg tablet 50 mg PO DAILY 04/22/20 09/22/21 09/26/21 History hydrochlorothiazide 12.5 mg tablet 12.5 mg PO DAILY 01/02/21 09/22/21 09/26/21 History lisinopril 5 mg tablet 2.5 mg PO DAILY 01/02/21 09/22/21 09/26/21 History metformin 500 mg tablet 500 mg PO BID 01/02/21 09/22/21 09/26/21 History cholecalciferol (vitamin D3) 10 10 mcg PO DAILY 04/25/21 09/22/21 09/26/21 History mcg (400 unit) capsule (Vitamin D3) pantoprazole 40 mg tablet,delayed 40 mg PO DAILY 30 Days #30 tab 09/27/21 Unknown Rx release (Protonix) Allergies Allergy/AdvReac Type Severity Reaction Status Date / Time No Known Allergies Allergy Verified 06/24/21 18:50 [facility] Anesthesia Medical History Anxiety Depression Diabetes Hyperlipidemia Hypertension Surgical History History of bilateral tubal ligation has essure in fallopian tubes--could not find in system History of History of colonoscopy History of endometrial ablation 2012 History of hysterectomy 04/25/2021 History of knee surgery History of laparoscopy 04/25/2021 Family History Mother Diabetes Heart disease Hypertension Breast cancer Hyperlipidemia Father Degenerative disc disease Diabetes Heart disease Hyperlipidemia Hypertension Grandmother Stroke Paternal Denies family history of CAD (coronary artery disease) Clotting disorder Chronic kidney disease (CKD) Bleeding disorder Thyroid disease Social History Smoking and tobacco status: current every day smoker (patient vapes ) Female Reproductive History Date of last menstrual period: 11/29/20 Data Anesthesia : 09/27/21 11:03 09/27/21 11:03 Short CBC 09/27/21 Range/Units 11:03 WBC 3.9 L (4.0-10.0) 10^3/uL Hgb 11.9 (11.5-15.3) g/dL Hct 36.5 L (37.0-47.0) % MCV 81.8 (81-99) fl Plt Count 245 (130-400) 10^3/cmm Neut % (Auto) 63.6 % Neut # (Auto) 2.45 (1.8-7.7) 10^3/uL BMP 09/27/21 11:03 Sodium 137 Potassium 4.3 Chloride 101 Carbon Dioxide 26 BUN 11 Creatinine 0.6 Glucose 271 H Calcium 8.9 Liver Function 09/27/21 Range/Units 11:03 Total Bilirubin 0.4 (0.15-1.2) mg/dL AST 15 (0-32) U/L ALT 24 (0-33) U/L Alkaline Phosphatase 78 (35-105) IU/L Albumin 3.6 (3.5-5.2) g/dL Cardiac Studies: Echocardiogram Ultrasound 08/28/19 Sestamibi Stress Test (Cardiology) 06/05/19
[2021-10-06 12:25] LABS: Miscellaneous Test See Scanned Lab Rpt
== END 2021-09-27 11:29 | disposition home or self-care (01) ==
PROVIDERS: PCP Internal Medicine; Visit Provider Surgery
PROC: 0DJD8ZZ Inspection of Lower Intestinal Tract, Via Natural or Artificial Opening Endoscopic (ICD-10-PCS; CPT 45378; 2021-09-27 09:45)
DX: C20 Malignant neoplasm of rectum (principal); K21.00 Gastro-esophageal reflux disease with esophagitis, without bleeding; K29.80 Duodenitis without bleeding; K29.50 Unspecified chronic gastritis without bleeding; B96.81 Helicobacter pylori [H. pylori] as the cause of diseases classified elsewhere; F41.9 Anxiety disorder, unspecified; F32.9 Major depressive disorder, single episode, unspecified; E11.9 Type 2 diabetes mellitus without complications; I10 Essential (primary) hypertension; E78.5 Hyperlipidemia, unspecified; Z82.49 Family history of ischemic heart disease and other diseases of the circulatory system; Z83.3 Family history of diabetes mellitus; F17.290 Nicotine dependence, other tobacco product, uncomplicated
CPT/HCPCS: 43239; 45331; 45335; 80053; 82378; 85025; 88305; 88342; 88360; J2704; J7030

== ENCOUNTER → 2021-10-05 15:33 | Outpatient (BNVA) | payer MEDICAID, SELFPAY | PROVIDERS: PCP Internal Medicine; Visit Provider Surgery | DX: C20 Malignant neoplasm of rectum (principal); A04.8 Other specified bacterial intestinal infections | CPT/HCPCS: 99214 ==

== ENCOUNTER 2021-12-07 07:46 | Oncology outpatient (recurring) (ONCR) | payer MEDICAID, SELFPAY ==
[2021-12-07 09:40] LABS: Basophils % 0.4 %; Eosinophils # 0.1 10^3/uL (0.0-0.8); Eosinophils % 2.5 %; Hematocrit 37.4 % (37.0-47.0); Hemoglobin 11.7 g/dL (11.5-15.3); Lymphocytes # 1.4 10^3/uL (0.8-4.8); Lymphocytes % 24.6 %; Mean Corpuscular HGB Conc 31.3 g/dL (30.0-36.0); Mean Corpuscular Hemoglobin 26.5 pg (28.0-34.0); Mean Corpuscular Volume 84.8 fl (81-99); Mean Platelet Volume 9.2 fL (7.4-10.4); Monocytes # 0.5 10^3/uL (0.2-0.9); Monocytes % 8.9 %; Neutrophils # 3.48 10^3/uL (1.8-7.7); Neutrophils % 63.1 %; Nucleated Red Blood Cells % 0 %; Platelet Count 424 10^3/cmm (130-400); Red Blood Count 4.41 10^6/uL (4.1-5.3); Red Cell Distribution Width 13.7 % (12.1-15.1); White Blood Count 5.5 10^3/uL (4.0-10.0)
[2021-12-07 11:37] LABS: Alanine Aminotransferase 12 U/L (0-33); Alkaline Phosphatase 70 U/L (35-105); Anion Gap 17.1 (5-19); Aspartate Amino Transferase 12 U/L (0-32); Blood Urea Nitrogen 14 mg/dL (6-20); Calcium 9.8 mg/dL (8.5-10.5); Carbon Dioxide 27 mmol/L (22-29); Chloride 96 mmol/L (98-107); Glomerular Filtration Rate 107.6 mL/min (90-130); Glucose 229 mg/dL (65-115); Osmolality Calculated 290 mOsm/kg (285-295); Potassium 4.1 mmol/L (3.5-5.1); Sodium 136 mmol/L (136-145); Total Bilirubin 0.3 mg/dL (0.15-1.2)
== END 2021-12-15 23:59 | disposition home or self-care (01) ==
LOC: ONCMED 07:46
PROVIDERS: PCP Internal Medicine; Visit Provider Internal Medicine Hematology & Oncology
DX: C18.9 Malignant neoplasm of colon, unspecified (principal)
CPT/HCPCS: 80053; 85025

== ENCOUNTER 2021-12-13 06:23 | Day surgery (SDC) | payer MEDICAID, SELFPAY ==
[2021-12-12 08:55] VITALS: BMI 37.8
--- NOTE | 2021-12-13 | SCC_ITS ---
Procedure done: 1. Placement of PowerPort via right subclavian vein 27.5 seconds of fluoroscopic guidance, for a cumulative dose of 7.34 mGy, was provided to Dr. Mendez by the radiology department. C-arm images of the chest were saved for the patient's permanent record. [facility]
--- NOTE | 2021-12-13 06:29 | SC_ITS ---
WS: [id number] Exam: C-arm FL for CVA [id number] Date/Time of Exam: 12/13/2021 6:29 AM Reason For Exam: Powerport Placement A single anterior posterior C-arm image of the right chest is submitted for evaluation. A right subclavian catheter has been placed and appears to end in the expected region of the midsuper ior vena cava. The visualized right lung is fully inflated. No other significant finding on this limi sola series.
[2021-12-13 06:31] VITALS: BP 156/86; PULSE 94; RESP 17; TEMP 36.2; O2SAT 96
[2021-12-13 06:54] LABS: Glucose Point of Care 312 mg/dL (70-110)
[2021-12-13] MEDS: sodium chloride 0.9% 1,000 ML 30 ML IV (06:58)
--- NOTE | 2021-12-13 07:30 | ANES.PREANE2 ---
Pre-Anesthetic Assessment Height/Weight: Height 1.63 m Weight 99.79 kg Temp Pulse Resp BP Pulse Ox O2 Del Method 97.2 F L 94 17 156/86 96 12/13/21 06:31 12/13/21 06:31 12/13/21 06:31 12/13/21 06:31 12/13/21 06:31 12/13/21 06:36 Preop Diagnosis: Colorectal cancer Operation Date: 12/13/21 08:20 Proposed Procedures p Portacath Placement 87353,C18.9(Not Applicable) - Karan Mendez MD Familial anesthetic complications: none Was Beta Andre taken within 24 hours: Yes Was Clonidine taken within 24 hours: N/A Last intake: Intake Last Liquid Date 12/12/21 Last Liquid Time 22:00 Last Solid Date 12/12/21 Last Solid Time 19:00 Social No alcohol and No tobacco Exam alert, oriented x 3, clear to auscultation bilaterally and regular rate & rhythm Airway Submandibular: within normal limits Cervical ROM: within normal limits Mallampati: Class II Dentition: full CV/HEM Hypertension Metabolic Hyperlipidemia and Morbid Obesity Anesthetic Plan ASA status: 3 Anesthesia: MAC Medications/Allergies Home Medications Medication Instructions Recorded Confirmed Last Taken Type atorvastatin 20 mg tablet 20 mg PO DAILY 04/22/20 12/13/21 12/11/21 History sertraline 50 mg tablet 50 mg PO DAILY 04/22/20 12/13/21 12/12/21 09:30 History hydrochlorothiazide 12.5 mg tablet 12.5 mg PO DAILY 01/02/21 12/13/21 12/12/21 09:30 History lisinopril 5 mg tablet 2.5 mg PO DAILY 01/02/21 12/13/21 11/01/21 History metformin 500 mg tablet 500 mg PO BID 01/02/21 12/13/21 12/12/21 09:30 History cholecalciferol (vitamin D3) 10 10 mcg PO DAILY 04/25/21 12/13/21 12/12/21 09:30 History mcg (400 unit) capsule (Vitamin D3) pantoprazole 40 mg tablet,delayed 40 mg PO DAILY 30 days #30 tabs 09/27/21 12/13/21 12/12/21 09:30 Rx release (Protonix) propranolol 20 mg tablet 20 mg PO BID PRN Anxiety 12/07/21 12/13/21 12/12/21 09:30 History Allergies Allergy/AdvReac Type Severity Reaction Status Date / Time No Known Allergies Allergy Verified 12/13/21 06:33 Current Medications Generic Name Dose Route Start Last Admin Trade Name Chanceq PRN Reason Stop Dose Admin Sodium Chloride 1,000 mls @ 30 mls/hr 12/13/21 06:30 12/13/21 06:58 Sodium Chloride 0.9% IV 12/14/21 06:29 30 mls/hr .Q24H GUANACO Administration PFSH Anesthesia Medical History Anxiety Colon cancer Depression Diabetes Hyperlipidemia Hypertension Surgical History History of bilateral tubal ligation has essure in fallopian tubes--could not find in system History of History of colonoscopy History of endometrial ablation 2012 History of hysterectomy 04/25/2021 History of knee surgery History of laparoscopy 04/25/2021 Family History Mother Diabetes Heart disease Hypertension Breast cancer Hyperlipidemia Father Degenerative disc disease Diabetes Heart disease Hyperlipidemia Hypertension Grandmother Stroke Paternal Denies family history of CAD (coronary artery disease) Clotting disorder Chronic kidney disease (CKD) Bleeding disorder Thyroid disease Social History Smoking and tobacco status: current every day smoker (smoked for 20 years, vapes now) Alcohol intake: current Alcohol intake frequency: holidays/special occasions only Female Reproductive History Date of last menstrual period: 11/29/20 Data Anesthesia Cardiac Studies: Echocardiogram Ultrasound 08/28/19 Sestamibi Stress Test (Cardiology) 06/05/19
--- NOTE | 2021-12-13 08:17 | W.PM.OPSUD ---
Surgery/Procedure H&P Update DATE OF PROCEDURE: December 13, 2021 DATE H&P PERFORMED: 12/07/21 H&P UPDATE INFORMATION: I have reviewed H&P completed within last 30 days, I have examined patient prior to procedure and No changes to prior documentation PREOP DIAGNOSIS: Colorectal cancer PRIMARY INDICATION FOR PROCEDURE: The same PLANNED PROCEDURE: Operation Date: 12/13/21 08:20 Proposed Procedures p Portacath Placement 77760,C18.9(Not Applicable) - Karan Mendez MD
[2021-12-13] MEDS: ceFAZolin 2,000 MG in sodium chloride 0.9% (plus) 50 ML 100 MG IV (08:39)
[2021-12-13] MEDS: lidocaine 2% INJ 20 mL INJECTION (09:04)
[2021-12-13] MEDS: heparin, porcine 1,000 unit/mL INJ 10 mL 10000 UNIT IRRIGATION (09:05)
--- NOTE | 2021-12-13 09:28 | PM.OP ---
Operative Report Date of procedure: December 13, 2021 Pre-op diagnosis: Preop Diagnosis Colorectal cancer Post-op diagnosis: The same Procedure done: 1. Placement of PowerPort via right subclavian vein 2. Fluoroscopic guidance and interpretation for placement of catheter Implants: Right subclavian vein PowerPort Surgeon: Kraan Mendez MD Desktop Support Manager: fibre technologist Cristy Circulating nurse Maryjane White Estimated blood loss (mL): 5 Procedure: Patient was identified in the holding area and taken to the operative room and placed in supine position IV propofol was given by the anesthesia provider ,both arms were tucked,Time-out was done verifying the patient's name/date of /planned procedure and destination after the procedure, all were in agreement. SCDs confirmed to be functioning, preoperative antibiotics administered per protocol, and beta stella protocol was confirmed, appropriate positioning of the patient was done by me. Medications were reviewed to assess for anticoagulant usage. Risks and benefits and prevention of central line associated blood stream infection (CLABSI) were discussed with the patient/CPOA, and a consent was obtained. Monitors were in place and monitored throughout the procedure. All necessary supplies were available prior to start. Hand hygiene was completed prior to starting. Maximum barrier technique was utilized including a sterile gown, sterile gloves with a hat and mask. Site was was prepped with [chlorhexidine] and a full body drape was placed. 5 mL of 2% lidocaine was injected into the skin with a 25 gauge needle. Prep& drape was done under the usual sterile technique, lidocaine 2% was injected at the site of the stick, started by right sub-clavian vein stick that retrieved venous blood was obtained from the first stick, a guide wire was then threaded and under the guidance of fluoroscopy position was confirmed to be in the IVC and my interpretation, there were no PVC changes, at that point the guide wire was secured to the drapes with a hemostat and the needle was taken out, attention was then deviated towards creation of a pocket for the port were lidocaine 2% was injected using an 15 blade knife skin incision was created dissection using the Bovie to create a pocket for the Power Port to be accommodated. Hemostasis was secured, after the port being appropriately flushed it was inserted into the pocket and a tunneler was used to accommodate the catheter of the port catheter to be delivered through the incision first created at the site of the stick, at that point under fluoroscopy an estimated length was measured for the catheter and was cut at the designed level, followed by that a dilator with the sheath introduced(Seldinger technique) onto the guide wire the dilator and the wire were retrieved and the catheter of the port was introduced via the sheath where it was peeled off and the catheter maintained to be in the SVC that was confirmed with fluoroscopy, and the fluoroscopy interpretation was done by me throughout the entire procedure. The port was kept in its pocket,3-0 Vicryl deep subdermal interrupted sutures, skin was then closed by 4-0 Monocryl as subcuticular closure.The port was appropriately flushed with heparin and venous blood was withdrawn without difficulty.The stick site was closed by 4-0 Monocryl and Dermabond was used followed by dressing.Count was correct at the end of the procedure.Patient tolerated the procedure well was taken to the recovery area. I was present for the whole entire procedure. Position of the catheter was checked with a postoperative chest x-ray and it was in good position without evidence of pneumothorax
--- NOTE | 2021-12-13 09:29 | XR_ITS ---
WS: [id number] Exam: XR chest 1V portable [id number] Date/Time of Exam: 12/13/2021 9:41 AM Reason For Exam: Status postplacement of right subclavian vein PowerPort Comparison 08/26/2012. The lungs are clear and fully expanded. Normal cardiomediastinal silhouette. Eventration of the right diaphragm. Right subclavian port has been placed and ends in the lower one third of the SVC. Bony st ructures are intact. XR/XR chest 1V portable [id number] IMPRESSION: 1. Right subclavian port in satisfactory position. 2. No acute cardiopulmonary finding.
[2021-12-13 09:37] VITALS: BP 131/92; PULSE 84; RESP 18; TEMP 36.7; O2SAT 95
[2021-12-13 09:42] VITALS: BP 128/94; PULSE 82; RESP 18; O2SAT 96
[2021-12-13 09:50] VITALS: BP 124/84; PULSE 81; RESP 18; TEMP 36.4; O2SAT 96
[2021-12-13 09:53] VITALS: BP 141/81; PULSE 79; RESP 17; TEMP 36.4; O2SAT 95
--- NOTE | 2021-12-13 10:00 | SUR.PHASEII ---
1000-Patient in postop room. VS back to baseline, no nausea and no pain reported. Family at bedside.
[2021-12-13 10:30] VITALS: BP 113/79; PULSE 80; RESP 18; TEMP 36.4; O2SAT 97
--- NOTE | 2021-12-13 15:34 | ANE.PACU2 ---
Inpatient post-anesthesia follow up: Airway intact: Yes Vital signs: Temperature 97.6 F Pulse Rate 80 Respiratory Rate 18 Blood Pressure 113/79 Pulse Oximetry 97 Oxygen Delivery Me thod Room Air Oxygen Flow Rate Fraction of Inspir ed Oxygen Hydration adequate: Yes Nausea and vomiting: No Pain level: 1 Mental status: Baseline
== END 2021-12-13 10:30 | disposition home or self-care (01) ==
PROVIDERS: PCP Internal Medicine; Visit Provider Surgery
PROC: (CPT 36561; principal; 2021-12-13 08:10)
DX: C18.9 Malignant neoplasm of colon, unspecified (principal); I10 Essential (primary) hypertension; E78.5 Hyperlipidemia, unspecified; E66.01 Morbid (severe) obesity due to excess calories; Z68.37 Body mass index [BMI] 37.0-37.9, adult; Z79.84 Long term (current) use of oral hypoglycemic drugs; F41.9 Anxiety disorder, unspecified; F32.A Depression, unspecified; F17.290 Nicotine dependence, other tobacco product, uncomplicated
CPT/HCPCS: 36561; 36416; 71045; 76000; 77001; 82962; C1788; J1644; J2250; J2370; J3010; J7030

== ENCOUNTER 2021-12-28 08:17 | Outpatient (CLI) | payer MEDICAID, SELFPAY ==
--- NOTE | 2021-12-28 08:45 | US_ITS ---
WS: [id number] RIGHT UPPER QUADRANT ULTRASOUND HISTORY: drainage from umbilicus, 4 weeks postop abdominal surgery. COMPARISON: None available. Ultrasound is directed to the umbilicus. Mild soft tissue thickening without increased vascularity at the umbilicus. Patient has a known umbilical hernia that was seen on the CT of 10/23/2021. There is a small amount of fluid at the umbilicus which extends through a tract towards the peritoneal cavity. T here is no focal well circumscribed abscess. This small focal collection measures 1.8 x 1.4 x 0.5 cm. US/US abdomen limited 10037 IMPRESSION: 1. There is a very small fluid tract at the just deep to the umbilicus measuri ng 1.8 x 1.4 x 0.5 cm. No increased vascularity. This does not contact to the u rinary bladder. For additional evaluation CT of the abdomen and pelvis with IV and oral contrast may be necessary. 2. Patient has a known small umbilical hernia was seen on a prior CT of 10/24/19 22.
== END 2021-12-28 08:18 | disposition home or self-care (01) ==
LOC: RAD 08:18
PROVIDERS: PCP Internal Medicine; Visit Provider Nurse Practitioner
DX: R19.8 Other specified symptoms and signs involving the digestive system and abdomen (principal); R10.9 Unspecified abdominal pain; C18.9 Malignant neoplasm of colon, unspecified; T81.89XA Other complications of procedures, not elsewhere classified, initial encounter; Z98.890 Other specified postprocedural states
CPT/HCPCS: 76705

== ENCOUNTER 2022-01-05 11:30 | Oncology outpatient (recurring) (ONCR) | payer MEDICAID, SELFPAY ==
[2021-12-20 08:38] LABS: Basophils % 0.4 %; Eosinophils # 0.1 10^3/uL (0.0-0.8); Eosinophils % 1.5 %; Hematocrit 38.3 % (37.0-47.0); Lymphocytes # 1.2 10^3/uL (0.8-4.8); Lymphocytes % 25.1 %; Mean Corpuscular HGB Conc 31.3 g/dL (30.0-36.0); Mean Corpuscular Volume 83.1 fl (81-99); Mean Platelet Volume 9.5 fL (7.4-10.4); Monocytes # 0.4 10^3/uL (0.2-0.9); Monocytes % 7.7 %; Neutrophils # 3.05 10^3/uL (1.8-7.7); Neutrophils % 64.9 %; Nucleated Red Blood Cells % 0 %; Platelet Count 230 10^3/cmm (130-400); Red Blood Count 4.61 10^6/uL (4.1-5.3); Red Cell Distribution Width 13.7 % (12.1-15.1); White Blood Count 4.7 10^3/uL (4.0-10.0)
[2021-12-20 09:00] LABS: Alanine Aminotransferase 12 U/L (0-33); Albumin Level 4.2 g/dL (3.5-5.2); Alkaline Phosphatase 80 U/L (35-105); Anion Gap 15.3 (5-19); Aspartate Amino Transferase 8 U/L (0-32); Blood Urea Nitrogen 16 mg/dL (6-20); Calcium 9.6 mg/dL (8.5-10.5); Carbon Dioxide 28 mmol/L (22-29); Chloride 97 mmol/L (98-107); Globulin 2.7 g/dL (1.3-4.6); Glomerular Filtration Rate 107.6 mL/min (90-130); Glucose 373 mg/dL (65-115); Osmolality Calculated 298 mOsm/kg (285-295); Potassium 4.3 mmol/L (3.5-5.1); Sodium 136 mmol/L (136-145); Total Bilirubin 0.5 mg/dL (0.15-1.2); Total Protein 6.9 g/dL (6.6-8.7)
[2021-12-20] MEDS: palonosetron 0.25 mg/5 mL SDV IVP (10:43)
[2021-12-20] MEDS: dextrose 5% 250 ML 75 ML IV (10:43)
[2021-12-20] MEDS: DEXTROSE 5% IV (11:20)
[2021-12-20] MEDS: leucovorin 820 MG in dextrose 5% 250 ML 83 MG IV (11:20)
[2021-12-20] MEDS: OXALIPLATIN IV (11:20)
[2021-12-20] MEDS: fluorouraciL 50 mg/ml MDV 100 mL 800 MG IVP (15:19)
[2021-12-20] MEDS: FLUOROURACIL IV (15:25)
[2021-12-20] MEDS: ELASTOMERIC PUMP PUMP IV (15:25)
[2021-12-20] MEDS: SODIUM CHLORIDE IV (15:25)
[2021-12-20 15:29] VITALS: BP 122/77; PULSE 93; RESP 16; TEMP 36.8; O2SAT 98
[2021-12-22 11:33] VITALS: BP 101/68; PULSE 72; RESP 16; TEMP 37.1; O2SAT 99
[2021-12-27 08:47] LABS: Basophils % 0.4 %; Eosinophils # 0.1 10^3/uL (0.0-0.8); Eosinophils % 1.8 %; Hematocrit 35.6 % (37.0-47.0); Hemoglobin 11.6 g/dL (11.5-15.3); Lymphocytes # 1.4 10^3/uL (0.8-4.8); Lymphocytes % 27.2 %; Mean Corpuscular HGB Conc 32.6 g/dL (30.0-36.0); Mean Corpuscular Hemoglobin 26.8 pg (28.0-34.0); Mean Corpuscular Volume 82.2 fl (81-99); Mean Platelet Volume 9.4 fL (7.4-10.4); Monocytes # 0.4 10^3/uL (0.2-0.9); Monocytes % 7.6 %; Neutrophils # 3.06 10^3/uL (1.8-7.7); Neutrophils % 61.6 %; Nucleated Red Blood Cells % 0 %; Platelet Count 218 10^3/cmm (130-400); Red Blood Count 4.33 10^6/uL (4.1-5.3); Red Cell Distribution Width 13.2 % (12.1-15.1)
[2021-12-27 08:55] LABS: Alanine Aminotransferase 14 U/L (0-33); Alkaline Phosphatase 67 U/L (35-105); Aspartate Amino Transferase 11 U/L (0-32); Blood Urea Nitrogen 8 mg/dL (6-20); Calcium 9.7 mg/dL (8.5-10.5); Carbon Dioxide 25 mmol/L (22-29); Chloride 96 mmol/L (98-107); Globulin 2.7 g/dL (1.3-4.6); Glomerular Filtration Rate 90.1 mL/min (90-130); Glucose 295 mg/dL (65-115); Osmolality Calculated 287 mOsm/kg (285-295); Sodium 134 mmol/L (136-145); Total Bilirubin 0.3 mg/dL (0.15-1.2); Total Protein 6.7 g/dL (6.6-8.7)
[2021-12-27 09:05] LABS: Anion Gap 16.9 (5-19)
[2021-12-27 09:06] LABS: Potassium 3.9 mmol/L (3.5-5.1)
[2022-01-03 08:30] LABS: Basophils % 0.2 %; Eosinophils # 0.1 10^3/uL (0.0-0.8); Eosinophils % 1.5 %; Hematocrit 37.3 % (37.0-47.0); Hemoglobin 12.2 g/dL (11.5-15.3); Lymphocytes % 19.4 %; Mean Corpuscular HGB Conc 32.7 g/dL (30.0-36.0); Mean Corpuscular Hemoglobin 27.4 pg (28.0-34.0); Mean Corpuscular Volume 83.6 fl (81-99); Mean Platelet Volume 9.3 fL (7.4-10.4); Monocytes # 0.5 10^3/uL (0.2-0.9); Neutrophils # 3.61 10^3/uL (1.8-7.7); Neutrophils % 69.5 %; Nucleated Red Blood Cells % 0 %; Platelet Count 219 10^3/cmm (130-400); Red Blood Count 4.46 10^6/uL (4.1-5.3); Red Cell Distribution Width 14.2 % (12.1-15.1); White Blood Count 5.2 10^3/uL (4.0-10.0)
[2022-01-03 08:54] LABS: Alanine Aminotransferase 15 U/L (0-33); Albumin Level 4.1 g/dL (3.5-5.2); Alkaline Phosphatase 75 U/L (35-105); Anion Gap 15.8 (5-19); Aspartate Amino Transferase 16 U/L (0-32); Blood Urea Nitrogen 16 mg/dL (6-20); Calcium 9.9 mg/dL (8.5-10.5); Carbon Dioxide 27 mmol/L (22-29); Chloride 99 mmol/L (98-107); Globulin 2.9 g/dL (1.3-4.6); Glomerular Filtration Rate 90.1 mL/min (90-130); Glucose 354 mg/dL (65-115); Osmolality Calculated 299 mOsm/kg (285-295); Potassium 4.8 mmol/L (3.5-5.1); Sodium 137 mmol/L (136-145); Total Bilirubin 0.5 mg/dL (0.15-1.2)
[2022-01-03] MEDS: palonosetron 0.25 mg/5 mL SDV IVP (11:14)
[2022-01-03] MEDS: insulin lispro 100 unit/1 mL 8 UNIT SUBCUT (11:14)
[2022-01-03] MEDS: dextrose 5% 250 ML 100 ML IV (11:14)
[2022-01-03] MEDS: DEXTROSE 5% IV (11:37)
[2022-01-03] MEDS: OXALIPLATIN IV (11:37)
[2022-01-03] MEDS: leucovorin 820 MG in dextrose 5% 250 ML 62.5 MG IV (11:37)
[2022-01-03] MEDS: ELASTOMERIC PUMP PUMP IV (15:04)
[2022-01-03] MEDS: SODIUM CHLORIDE IV (15:04)
[2022-01-03] MEDS: FLUOROURACIL IV (15:04)
[2022-01-03] MEDS: fluorouraciL 50 mg/ml MDV 100 mL 800 MG IVP (15:04)
[2022-01-03] MEDS: insulin lispro 100 unit/1 mL 10 UNIT SUBCUT (15:41)
[2022-01-03 15:50] VITALS: BP 118/77; PULSE 86; TEMP 36.6; O2SAT 97
== END 2022-01-15 23:59 | disposition home or self-care (01) ==
PROVIDERS: Nurse Practitioner; PCP Internal Medicine; Visit Provider Internal Medicine Hematology & Oncology
DX: Z45.2 Encounter for adjustment and management of vascular access device (principal); C18.9 Malignant neoplasm of colon, unspecified
CPT/HCPCS: 36591; 80053; 85025; 96367; 96368; 96372; 96375; 96411; 96413; 96415; 96416; 96523; J0640; J1100; J1815; J2469; J9190; J9263

== ENCOUNTER 2022-02-14 08:00 | Oncology outpatient (recurring) (ONCR) | payer MEDICAID, SELFPAY ==
[2022-01-17 08:21] LABS: Basophils % 0.4 %; Eosinophils # 0.1 10^3/uL (0.0-0.8); Eosinophils % 1.3 %; Hematocrit 37.6 % (37.0-47.0); Hemoglobin 11.9 g/dL (11.5-15.3); Lymphocytes # 1.1 10^3/uL (0.8-4.8); Lymphocytes % 24.6 %; Mean Corpuscular HGB Conc 31.6 g/dL (30.0-36.0); Mean Corpuscular Hemoglobin 26.3 pg (28.0-34.0); Mean Platelet Volume 9.2 fL (7.4-10.4); Monocytes # 0.4 10^3/uL (0.2-0.9); Monocytes % 8.9 %; Neutrophils # 2.88 10^3/uL (1.8-7.7); Neutrophils % 64.6 %; Nucleated Red Blood Cells % 0 %; Platelet Count 163 10^3/cmm (130-400); Red Blood Count 4.53 10^6/uL (4.1-5.3); Red Cell Distribution Width 14.8 % (12.1-15.1); White Blood Count 4.5 10^3/uL (4.0-10.0)
[2022-01-17 08:41] LABS: Alanine Aminotransferase 17 U/L (0-33); Albumin Level 4.2 g/dL (3.5-5.2); Alkaline Phosphatase 61 U/L (35-105); Anion Gap 13.6 (5-19); Aspartate Amino Transferase 13 U/L (0-32); Blood Urea Nitrogen 24 mg/dL (6-20); Calcium 9.4 mg/dL (8.5-10.5); Carbon Dioxide 25 mmol/L (22-29); Chloride 103 mmol/L (98-107); Globulin 2.6 g/dL (1.3-4.6); Glomerular Filtration Rate 107.6 mL/min (90-130); Glucose 193 mg/dL (65-115); Osmolality Calculated 295 mOsm/kg (285-295); Potassium 3.6 mmol/L (3.5-5.1); Sodium 138 mmol/L (136-145); Total Bilirubin 0.4 mg/dL (0.15-1.2); Total Protein 6.8 g/dL (6.6-8.7)
[2022-01-17] MEDS: palonosetron 0.25 mg/5 mL SDV IVP (09:49)
[2022-01-17] MEDS: dextrose 5% 250 ML 75 ML IV (09:49)
[2022-01-17] MEDS: DEXTROSE 5% IV (10:31)
[2022-01-17] MEDS: OXALIPLATIN IV (10:31)
[2022-01-17] MEDS: leucovorin 820 MG in dextrose 5% 250 ML 62.5 MG IV (10:31)
[2022-01-17] MEDS: SODIUM CHLORIDE IV (14:24)
[2022-01-17] MEDS: fluorouraciL 50 mg/ml MDV 100 mL 800 MG IVP (14:24)
[2022-01-17] MEDS: ELASTOMERIC PUMP PUMP IV (14:24)
[2022-01-17] MEDS: FLUOROURACIL IV (14:24)
[2022-01-17 14:40] VITALS: BP 135/79; PULSE 75; RESP 16; TEMP 36.4; O2SAT 98
[2022-01-31 09:22] LABS: Basophils % 0.4 %; Eosinophils # 0.1 10^3/uL (0.0-0.8); Eosinophils % 1.3 %; Hematocrit 43.1 % (37.0-47.0); Hemoglobin 13.4 g/dL (11.5-15.3); Lymphocytes # 1.4 10^3/uL (0.8-4.8); Lymphocytes % 19.8 %; Mean Corpuscular HGB Conc 31.1 g/dL (30.0-36.0); Mean Corpuscular Volume 83.7 fl (81-99); Mean Platelet Volume 9.4 fL (7.4-10.4); Monocytes # 0.8 10^3/uL (0.2-0.9); Monocytes % 10.8 %; Neutrophils # 4.75 10^3/uL (1.8-7.7); Neutrophils % 67.3 %; Nucleated Red Blood Cells % 0 %; Platelet Count 210 10^3/cmm (130-400); Red Blood Count 5.15 10^6/uL (4.1-5.3); Red Cell Distribution Width 15.3 % (12.1-15.1); White Blood Count 7.1 10^3/uL (4.0-10.0)
[2022-01-31 09:43] LABS: Alanine Aminotransferase 18 U/L (0-33); Albumin Level 4.5 g/dL (3.5-5.2); Alkaline Phosphatase 72 U/L (35-105); Anion Gap 18.9 (5-19); Aspartate Amino Transferase 15 U/L (0-32); Blood Urea Nitrogen 19 mg/dL (6-20); Calcium 10.4 mg/dL (8.5-10.5); Carbon Dioxide 25 mmol/L (22-29); Chloride 100 mmol/L (98-107); Globulin 2.7 g/dL (1.3-4.6); Glomerular Filtration Rate 90.1 mL/min (90-130); Glucose 173 mg/dL (65-115); Osmolality Calculated 296 mOsm/kg (285-295); Potassium 3.9 mmol/L (3.5-5.1); Sodium 140 mmol/L (136-145); Total Bilirubin 0.5 mg/dL (0.15-1.2); Total Protein 7.2 g/dL (6.6-8.7)
[2022-01-31] MEDS: palonosetron 0.25 mg/5 mL SDV IVP (11:27)
[2022-01-31] MEDS: dextrose 5% 250 ML 75 ML IV (11:28)
[2022-01-31] MEDS: leucovorin 780 MG in dextrose 5% 250 ML 62.5 MG IV (12:18)
[2022-01-31] MEDS: fluorouraciL 4,700 MG, elastomeric pump 1 PUMP in sodium chloride 0.9% (100 ml) 0 ML IV (16:09)
[2022-01-31] MEDS: fluorouraciL 50 mg/ml MDV 100 mL 800 MG IVP (16:09)
[2022-01-31 16:19] VITALS: BP 113/73; PULSE 82; RESP 16; TEMP 36.2; O2SAT 97
[2022-02-02 11:33] VITALS: BP 117/81; PULSE 79; RESP 16; TEMP 36.8
[2022-02-14 08:33] LABS: Basophils % 0.4 %; Eosinophils # 0.1 10^3/uL (0.0-0.8); Eosinophils % 1.3 %; Hematocrit 38.9 % (37.0-47.0); Hemoglobin 12.3 g/dL (11.5-15.3); Lymphocytes # 1.2 10^3/uL (0.8-4.8); Lymphocytes % 26.1 %; Mean Corpuscular HGB Conc 31.6 g/dL (30.0-36.0); Mean Corpuscular Hemoglobin 26.2 pg (28.0-34.0); Mean Corpuscular Volume 82.9 fl (81-99); Mean Platelet Volume 9.9 fL (7.4-10.4); Monocytes # 0.5 10^3/uL (0.2-0.9); Monocytes % 10.7 %; Neutrophils # 2.81 10^3/uL (1.8-7.7); Neutrophils % 61.3 %; Nucleated Red Blood Cells % 0 %; Platelet Count 173 10^3/cmm (130-400); Red Blood Count 4.69 10^6/uL (4.1-5.3); Red Cell Distribution Width 16.3 % (12.1-15.1); White Blood Count 4.6 10^3/uL (4.0-10.0)
[2022-02-14 08:53] LABS: Alanine Aminotransferase 18 U/L (0-33); Albumin Level 4.1 g/dL (3.5-5.2); Alkaline Phosphatase 73 U/L (35-105); Anion Gap 13.3 (5-19); Aspartate Amino Transferase 15 U/L (0-32); Blood Urea Nitrogen 14 mg/dL (6-20); Calcium 9.9 mg/dL (8.5-10.5); Carbon Dioxide 27 mmol/L (22-29); Chloride 101 mmol/L (98-107); Globulin 2.6 g/dL (1.3-4.6); Glomerular Filtration Rate 107.6 mL/min (90-130); Glucose 228 mg/dL (65-115); Osmolality Calculated 292 mOsm/kg (285-295); Potassium 4.3 mmol/L (3.5-5.1); Sodium 137 mmol/L (136-145); Total Bilirubin 0.5 mg/dL (0.15-1.2); Total Protein 6.7 g/dL (6.6-8.7)
[2022-02-14] MEDS: dextrose 5% 250 ML 75 ML IV (10:23)
[2022-02-14] MEDS: palonosetron 0.25 mg/5 mL SDV IVP (10:24)
[2022-02-14] MEDS: DEXTROSE 5% IV ×2 (11:11→11:14)
[2022-02-14] MEDS: LEUCOVORIN IV (11:11)
[2022-02-14] MEDS: OXALIPLATIN IV (11:14)
[2022-02-14 13:35] VITALS: BP 124/78; PULSE 78; RESP 18; TEMP 36.6; O2SAT 97
[2022-02-14] MEDS: ELASTOMERIC PUMP PUMP IV (13:37)
[2022-02-14] MEDS: fluorouraciL 50 mg/ml MDV 100 mL 800 MG IVP (13:37)
[2022-02-14] MEDS: SODIUM CHLORIDE IV (13:37)
[2022-02-14] MEDS: FLUOROURACIL IV (13:37)
[2022-02-14 16:30] VITALS: BP 124/78; PULSE 74; RESP 17; TEMP 36.6; O2SAT 98
== END 2022-02-14 23:59 | disposition home or self-care (01) ==
PROVIDERS: PCP Internal Medicine; Visit Provider Internal Medicine Hematology & Oncology
DX: Z51.11 Encounter for antineoplastic chemotherapy; C20 Malignant neoplasm of rectum; C77.8 Secondary and unspecified malignant neoplasm of lymph nodes of multiple regions; B37.0 Candidal stomatitis; R73.9 Hyperglycemia, unspecified; Z79.899 Other long term (current) drug therapy; Z87.891 Personal history of nicotine dependence
CPT/HCPCS: 80053; 85025; 96367; 96368; 96375; 96411; 96413; 96415; 96416; 96523; J0640; J1100; J2469; J7060; J9190; J9263

== ENCOUNTER 2022-03-05 08:37 | Day surgery (SDC) | payer MEDICAID, SELFPAY ==
[2022-03-02 14:07] VITALS: BMI 37.0
[2022-03-05 09:03] VITALS: BP 119/81; PULSE 95; RESP 18; TEMP 36.1; O2SAT 93
[2022-03-05] MEDS: sodium chloride 0.9% 1,000 ML 30 ML IV (09:09)
--- NOTE | 2022-03-05 09:10 | W.PM.OPSFHP ---
Same Day Surgery H&P Indication for Procedure/HPI DATE OF PROCEDURE: March 05, 2022 CHIEF COMPLAINT/INDICATIONFOR SURGICAL PROCEDURE: Blood in stool PREOP DIAGNOSIS: Colorectal cancer PLANNED PROCEDURE: Operation Date: 03/05/22 09:45 Proposed Procedures p Colonoscopy 67045 K92.1(Not Applicable) - MD KRISTI Corcoran This is a pleasant 47 years old female patient well-known to me from previous clinical encounters. 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 Has been receiving chemotherapy and recently started to encounter bleeding per rectum without obvious explanation. Patient believes that it is her hemorrhoids. She was supposed to get her colonoscopy by Dr. Oates in March and then she decided to have it done by me as I did have opening earlier. Medications/Allergies* Home Medications Medication Instructions Recorded Confirmed Type atorvastatin 20 mg tablet 20 mg PO DAILY 04/22/20 03/02/22 History hydrochlorothiazide 12.5 mg tablet 12.5 mg PO DAILY 01/02/21 03/02/22 History lisinopril 5 mg tablet 2.5 mg PO DAILY 01/02/21 03/02/22 History cholecalciferol (vitamin D3) 10 10 mcg PO DAILY 04/25/21 03/02/22 History mcg (400 unit) capsule (Vitamin D3) propranolol 20 mg tablet 20 mg PO BID PRN Anxiety 12/07/21 03/02/22 History gabapentin 100 mg capsule 100 mg PO TID 01/10/22 03/02/22 History metformin 500 mg tablet 1,000 mg PO BID 01/17/22 03/02/22 History sertraline 50 mg tablet 100 mg PO DAILY 01/17/22 03/02/22 History lactobacillus combination no.9 4 See Rx Instructions PO .COMPLEX 02/28/22 03/02/22 History billion cell capsule (Adult 50 Plus Probiotic) Allergies/Adverse Reactions Allergy/AdvReac Type Severity Reaction Status Date / Time No Known Allergies Allergy Verified 03/05/22 09:12 Pertinent History/Comorbid Conditions* Medical History (Updated 02/27/22 @ 10:02 by Luis Oates DO) Anxiety Colon cancer Depression Diabetes Hyperlipidemia Hypertension Port-A-Cath in place Right chest wall, Dr. Mendez Presence of other vascular implants and grafts Right subclavian PowerPort 12/13/[address] Giurgius Surgical History (Updated 02/27/22 @ 10:02 by Luis Oates DO) History of bilateral tubal ligation has essure in fallopian tubes--could not find in system History of History of colon surgery 11/17/2021 - Tumor removed from colon with colon resection at [facility]. Dr. Blue. History of colonoscopy History of endometrial ablation 2012 History of hysterectomy 04/25/2021 History of knee surgery History of laparoscopy 04/25/2021 Family History (Updated 01/02/21 @ 14:47 by Susy Jacob LPN) Diabetes Mother Father Heart disease Mother Father Hyperlipidemia Mother Father Breast cancer Mother Degenerative disc disease Father Hypertension Mother Father Stroke Grandmother Paternal Denies family history of CAD (coronary artery disease) Clotting disorder Chronic kidney disease (CKD) Bleeding disorder Thyroid disease Social History Smoking and tobacco status: former smoker (smoked for 20 years, vapes now) Alcohol intake: current Alcohol intake frequency: holidays/special occasions only Pertinent Exam Findings alert, oriented x 3, regular rate & rhythm and procedure specific exam findings (Abdominal exam nontender nondistended soft) Recommendations Surgery/Procedure today (Colonoscopy with possible biopsy) Other Plans: Plan of care; After thorough history and physical examination and reviewing the chart, plan to perform diagnostic colonoscopy. I discussed with the patient in details the risks,benefits,alternatives and indications.The risk of aspiration, bleeding, soft tissue injury, perforation of the colon ,missed lesions and other potential concomitant complications were explained to the patient in details,also the potential need for Laproscoy/Laparotomy to repair any related complications including but not limited to colectomy and or Closotomy.The patient understood this well and did agree to proceed. Rationale was carefully and clearly discussed with the patient.Appropriate informed consent have been reviewed and signed All questions have been answered and all concerns have been addressed to patient's satisfaction. 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
[2022-03-05 09:14] LABS: Glucose Point of Care 162 mg/dL (70-110)
--- NOTE | 2022-03-05 09:47 | ANES.PREANE2 ---
Pre-Anesthetic Assessment Height/Weight: Height 1.63 m Weight 97.976 kg Temp Pulse Resp BP Pulse Ox O2 Del Method 97 F L 95 18 119/81 93 03/05/22 09:03 03/05/22 09:03 03/05/22 09:03 03/05/22 09:03 03/05/22 09:03 03/05/22 09:03 Preop Diagnosis: Colorectal cancer Operation Date: 03/05/22 09:45 Proposed Procedures p Colonoscopy 29127 K92.1(Not Applicable) - Karan Mendez MD Was Beta Andre taken within 24 hours: Yes Was Clonidine taken within 24 hours: N/A Last intake: Intake Last Liquid Date 03/04/22 Last Liquid Time 22:30 Last Solid Date 03/03/22 Last Solid Time 16:00 Social No alcohol and No tobacco Exam alert, oriented x 3, clear to auscultation bilaterally and regular rate & rhythm Airway Submandibular: within normal limits Cervical ROM: within normal limits Mallampati: Class I Comments: Comments: chemo thrush History/ROS No significant history except as noted and No significant complaints Pulmonary None reported CV/HEM Hypertension HLD None reported Hepatic None reported GI currently undergoing chemo for colon CA. last treatment last saturday Metabolic Diabetes Mellitus, Hyperlipidemia and Morbid Obesity [facility] None reported Neuropsych Anxiety, Depression and Neuropathy Anesthetic Plan ASA status: 3 Anesthesia: Anesthesia Evaluation and MAC Risk of > 500 ml blood loss (7ml/kg in children): Yes, adequate IV access and fluids planned Medications/Allergies Home Medications Medication Instructions Recorded Confirmed Last Taken Type atorvastatin 20 mg tablet 20 mg PO DAILY 04/22/20 03/02/22 03/04/22 History hydrochlorothiazide 12.5 mg tablet 12.5 mg PO DAILY 01/02/21 03/02/22 1 Week Ago History ~02/23/22 lisinopril 5 mg tablet 2.5 mg PO DAILY 01/02/21 03/02/22 03/04/22 History cholecalciferol (vitamin D3) 10 10 mcg PO DAILY 04/25/21 03/02/22 03/04/22 History mcg (400 unit) capsule (Vitamin D3) propranolol 20 mg tablet 20 mg PO BID PRN Anxiety 12/07/21 03/02/22 03/04/22 History hydrocodone 5 mg-acetaminophen 325 1 tab PO Q6H PRN pain #20 tabs 12/13/21 03/02/22 1 Month Ago Rx mg tablet ~01/31/22 lorazepam 1 mg tablet 0.5 - 1 mg PO Q6H PRN Severe 12/20/21 03/02/22 2 Weeks Ago Rx Nausea #30 tabs ~02/16/22 prochlorperazine maleate 10 mg 10 mg PO Q4H PRN Mild Nausea #30 12/20/21 03/02/22 02/28/22 Rx tablet (Compazine) tabs gabapentin 100 mg capsule 100 mg PO TID 01/10/22 03/02/22 03/04/22 History metformin 500 mg tablet 1,000 mg PO BID 01/17/22 03/02/22 03/04/22 History sertraline 50 mg tablet 100 mg PO DAILY 01/17/22 03/02/22 03/04/22 History insulin aspart U-100 100 unit/mL See Rx Instructions SUBCUT Q4H #15 02/14/22 03/02/22 03/02/22 Rx (3 mL) subcutaneous pen (Novolog mL Flexpen U-100 Insulin aspart) nystatin 100,000 unit/mL oral 5 ml PO QID #200 mL 02/14/22 03/02/22 1 Week Ago Rx suspension ~02/23/22 fluconazole 100 mg tablet 100 mg PO DAILY #7 tabs 02/28/22 03/02/22 03/04/22 Rx lactobacillus combination no.9 4 See Rx Instructions PO .COMPLEX 02/28/22 03/02/22 03/04/22 History billion cell capsule (Adult 50 Plus Probiotic) Allergies Allergy/AdvReac Type Severity Reaction Status Date / Time No Known Allergies Allergy Verified 03/05/22 09:12 Current Medications Generic Name Dose Route Start Last Admin Trade Name Freq PRN Reason Stop Dose Admin Sodium Chloride 1,000 mls @ 30 mls/hr 03/05/22 09:00 03/05/22 09:09 Sodium Chloride 0.9% IV 03/06/22 08:59 30 mls/hr .Q24H GUANACO Administration PFSH Anesthesia Medical History Anxiety Colon cancer Depression Diabetes Hyperlipidemia Hypertension Port-A-Cath in place Right chest wall, Dr. Giurgius Presence of other vascular implants and grafts Right subclavian PowerPort 12/13/[address] Mendez Surgical History History of bilateral tubal ligation has essure in fallopian tubes--could not find in system History of History of colon surgery 11/17/2021 - Tumor removed from colon with colon resection at [facility]. Dr. Blue. History of colonoscopy History of endometrial ablation 2012 History of hysterectomy 04/25/2021 History of knee surgery History of laparoscopy 04/25/2021 Family History Mother Diabetes Heart disease Hypertension Breast cancer Hyperlipidemia Father Degenerative disc disease Diabetes Heart disease Hyperlipidemia Hypertension Grandmother Stroke Paternal Denies family history of CAD (coronary artery disease) Clotting disorder Chronic kidney disease (CKD) Bleeding disorder Thyroid disease Social History Smoking and tobacco status: former smoker (smoked for 20 years, vapes now) Alcohol intake: current Alcohol intake frequency: holidays/special occasions only Female Reproductive History Date of last menstrual period: 11/29/20 Data Anesthesia Cardiac Studies: Echocardiogram Ultrasound 08/28/19 Sestamibi Stress Test (Cardiology) 06/05/19
[2022-03-05 10:32] VITALS: BP 119/75; PULSE 86; RESP 18; TEMP 36.1; O2SAT 98
[2022-03-05] MEDS: piperacillin-tazobactam 3.375 GM in sodium chloride 0.9% (plus) 50 ML IV (10:41)
[2022-03-05 11:22] VITALS: BP 110/67; PULSE 75; RESP 18; O2SAT 99
--- NOTE | 2022-03-05 15:46 | ANE.PACU2 ---
Inpatient post-anesthesia follow up: Airway intact: Yes Vital signs: Temperature 97.0 F Pulse Rate 75 Respiratory Rate 18 Blood Pressure 110/67 Pulse Oximetry 99 Oxygen Delivery Me thod Room Air Oxygen Flow Rate Fraction of Inspir ed Oxygen Hydration adequate: Yes Nausea and vomiting: No Pain level: 2 Mental status: Baseline
== END 2022-03-05 11:26 | disposition home or self-care (01) ==
PROVIDERS: PCP Internal Medicine; Visit Provider Surgery
PROC: 0DJD8ZZ Inspection of Lower Intestinal Tract, Via Natural or Artificial Opening Endoscopic (ICD-10-PCS; CPT 45378; principal; 2022-03-05 09:45)
DX: K92.1 Melena (principal); K63.89 Other specified diseases of intestine; I10 Essential (primary) hypertension; E78.5 Hyperlipidemia, unspecified; E66.01 Morbid (severe) obesity due to excess calories; Z68.37 Body mass index [BMI] 37.0-37.9, adult; E11.40 Type 2 diabetes mellitus with diabetic neuropathy, unspecified; F32.A Depression, unspecified
CPT/HCPCS: 36416; 45385; 82962; 88305; J2405; J2543; J2704; J7030

== ENCOUNTER 2022-03-16 11:30 | Oncology outpatient (recurring) (ONCR) | payer MEDICAID, SELFPAY ==
[2022-02-28] MEDS: alteplase 1 mg/mL SDV 2 mL 2 MG INTRACATH (09:14)
[2022-02-28 09:25] LABS: Basophils % 0.6 %; Eosinophils # 0.1 10^3/uL (0.0-0.8); Eosinophils % 1.4 %; Hematocrit 39.9 % (37.0-47.0); Hemoglobin 12.4 g/dL (11.5-15.3); Lymphocytes # 1.1 10^3/uL (0.8-4.8); Lymphocytes % 22.5 %; Mean Corpuscular HGB Conc 31.1 g/dL (30.0-36.0); Mean Corpuscular Hemoglobin 26.2 pg (28.0-34.0); Mean Corpuscular Volume 84.2 fl (81-99); Mean Platelet Volume 9.8 fL (7.4-10.4); Monocytes # 0.6 10^3/uL (0.2-0.9); Monocytes % 12.8 %; Neutrophils # 3.08 10^3/uL (1.8-7.7); Neutrophils % 62.3 %; Nucleated Red Blood Cells % 0 %; Platelet Count 174 10^3/cmm (130-400); Red Blood Count 4.74 10^6/uL (4.1-5.3); White Blood Count 4.9 10^3/uL (4.0-10.0)
[2022-02-28 09:40] LABS: Alanine Aminotransferase 22 U/L (0-33); Alkaline Phosphatase 68 U/L (35-105); Aspartate Amino Transferase 20 U/L (0-32); Blood Urea Nitrogen 23 mg/dL (6-20); Carbon Dioxide 29 mmol/L (22-29); Chloride 100 mmol/L (98-107); Glomerular Filtration Rate 67.1 mL/min (90-130); Glucose 118 mg/dL (65-115); Osmolality Calculated 295 mOsm/kg (285-295); Sodium 140 mmol/L (136-145); Total Bilirubin 0.3 mg/dL (0.15-1.2)
[2022-02-28] MEDS: palonosetron 0.25 mg/5 mL SDV IVP (11:27)
[2022-02-28] MEDS: dextrose 5% 250 ML 75 ML IV (11:27)
[2022-02-28] MEDS: leucovorin 820 MG in dextrose 5% 250 ML 62.5 MG IV (11:59)
[2022-02-28] MEDS: FLUOROURACIL IV (15:57)
[2022-02-28] MEDS: SODIUM CHLORIDE IV (15:57)
[2022-02-28] MEDS: ELASTOMERIC PUMP PUMP IV (15:57)
[2022-02-28] MEDS: fluorouraciL 50 mg/ml MDV 100 mL 800 MG IVP (15:57)
[2022-02-28 16:10] VITALS: BP 106/66; PULSE 80; RESP 16; TEMP 35.9; O2SAT 96
[2022-03-14 10:01] LABS: Basophils % 0.4 %; Eosinophils # 0.1 10^3/uL (0.0-0.8); Eosinophils % 1.2 %; Hematocrit 37.3 % (37.0-47.0); Hemoglobin 11.5 g/dL (11.5-15.3); Lymphocytes # 0.9 10^3/uL (0.8-4.8); Lymphocytes % 17.7 %; Mean Corpuscular HGB Conc 30.8 g/dL (30.0-36.0); Mean Corpuscular Hemoglobin 26.4 pg (28.0-34.0); Mean Corpuscular Volume 85.6 fl (81-99); Mean Platelet Volume 8.5 fL (7.4-10.4); Monocytes # 0.7 10^3/uL (0.2-0.9); Neutrophils # 3.45 10^3/uL (1.8-7.7); Neutrophils % 66.3 %; Nucleated Red Blood Cells % 0 %; Platelet Count 115 10^3/cmm (130-400); Red Blood Count 4.36 10^6/uL (4.1-5.3); Red Cell Distribution Width 17.8 % (12.1-15.1); White Blood Count 5.2 10^3/uL (4.0-10.0)
[2022-03-14 10:18] LABS: Alanine Aminotransferase 32 U/L (0-33); Alkaline Phosphatase 71 U/L (35-105); Anion Gap 12.4 (5-19); Aspartate Amino Transferase 26 U/L (0-32); Blood Urea Nitrogen 22 mg/dL (6-20); Calcium 9.4 mg/dL (8.5-10.5); Carbon Dioxide 27 mmol/L (22-29); Chloride 101 mmol/L (98-107); Globulin 2.5 g/dL (1.3-4.6); Glomerular Filtration Rate 107.2 mL/min (90-130); Glucose 187 mg/dL (65-115); Osmolality Calculated 290 mOsm/kg (285-295); Potassium 4.4 mmol/L (3.5-5.1); Sodium 136 mmol/L (136-145); Total Bilirubin 0.3 mg/dL (0.15-1.2); Total Protein 6.5 g/dL (6.6-8.7)
[2022-03-14] MEDS: dextrose 5% 250 ML 75 ML IV (11:56)
[2022-03-14] MEDS: palonosetron 0.25 mg/5 mL SDV IVP (11:57)
[2022-03-14] MEDS: leucovorin 820 MG in dextrose 5% 250 ML 62.5 MG IV (12:16)
[2022-03-14] MEDS: fluorouraciL 50 mg/ml MDV 100 mL 800 MG IVP (15:58)
[2022-03-14] MEDS: ELASTOMERIC PUMP PUMP IV (15:58)
[2022-03-14] MEDS: FLUOROURACIL IV (15:58)
[2022-03-14] MEDS: SODIUM CHLORIDE IV (15:58)
[2022-03-14 16:08] VITALS: BP 106/67; PULSE 85; RESP 16; TEMP 36.4; O2SAT 95
== END 2022-03-17 23:59 | disposition home or self-care (01) ==
PROVIDERS: Nurse Practitioner; PCP Internal Medicine; Visit Provider Internal Medicine Hematology & Oncology
DX: C20 Malignant neoplasm of rectum; C18.9 Malignant neoplasm of colon, unspecified; C77.8 Secondary and unspecified malignant neoplasm of lymph nodes of multiple regions; Z79.899 Other long term (current) drug therapy
CPT/HCPCS: 80053; 85025; 96367; 96368; 96375; 96411; 96413; 96415; 96416; 96523; J0640; J1100; J2469; J2997; J7060; J9190; J9263

== ENCOUNTER 2022-03-28 07:52 | Oncology outpatient (recurring) (ONCR) | payer MEDICAID, SELFPAY ==
[2022-03-28 08:23] LABS: Basophils % 0.3 %; Eosinophils # 0.1 10^3/uL (0.0-0.8); Eosinophils % 1.1 %; Hematocrit 37.3 % (37.0-47.0); Hemoglobin 11.5 g/dL (11.5-15.3); Lymphocytes # 1.7 10^3/uL (0.8-4.8); Lymphocytes % 27.7 %; Mean Corpuscular HGB Conc 30.8 g/dL (30.0-36.0); Mean Corpuscular Hemoglobin 26.1 pg (28.0-34.0); Mean Corpuscular Volume 84.8 fl (81-99); Mean Platelet Volume 9.6 fL (7.4-10.4); Monocytes % 16.3 %; Neutrophils # 3.29 10^3/uL (1.8-7.7); Neutrophils % 53.8 %; Nucleated Red Blood Cells % 0.3 %; Platelet Count 176 10^3/cmm (130-400); Red Cell Distribution Width 18.4 % (12.1-15.1); White Blood Count 6.1 10^3/uL (4.0-10.0)
[2022-03-28 09:37] LABS: Alanine Aminotransferase 27 U/L (0-33); Albumin Level 4.1 g/dL (3.5-5.2); Alkaline Phosphatase 83 U/L (35-105); Anion Gap 16.2 (5-19); Aspartate Amino Transferase 25 U/L (0-32); Blood Urea Nitrogen 13 mg/dL (6-20); Carbon Dioxide 25 mmol/L (22-29); Chloride 103 mmol/L (98-107); Globulin 2.8 g/dL (1.3-4.6); Glomerular Filtration Rate 107.2 mL/min (90-130); Glucose 150 mg/dL (65-115); Osmolality Calculated 291 mOsm/kg (285-295); Potassium 5.2 mmol/L (3.5-5.1); Sodium 139 mmol/L (136-145); Total Bilirubin 0.2 mg/dL (0.15-1.2); Total Protein 6.9 g/dL (6.6-8.7)
--- NOTE | 2022-03-28 10:33 | PC.NURSE ---
Chemo tx delayed per [facility] order. Pt stated she's been having complications with diarrhea, and is having colonoscopy soon. Tx delayed for 2 weeks as scheduled/lc
== END 2022-04-17 23:59 | disposition home or self-care (01) ==
PROVIDERS: PCP Internal Medicine; Visit Provider Internal Medicine Hematology & Oncology
DX: Z51.11 Encounter for antineoplastic chemotherapy; C19 Malignant neoplasm of rectosigmoid junction; G62.0 Drug-induced polyneuropathy; T45.1X5A Adverse effect of antineoplastic and immunosuppressive drugs, initial encounter; C77.8 Secondary and unspecified malignant neoplasm of lymph nodes of multiple regions; K59.03 Drug induced constipation; Z79.899 Other long term (current) drug therapy; Z95.828 Presence of other vascular implants and grafts
CPT/HCPCS: 36591; 80053; 85025

== ENCOUNTER 2022-05-11 11:30 | Oncology outpatient (recurring) (ONCR) | payer BC, MEDICAID, SELFPAY ==
[2022-04-25 08:18] LABS: Basophils % 0.6 %; Eosinophils # 0.1 10^3/uL (0.0-0.8); Eosinophils % 2.2 %; Hematocrit 36.9 % (37.0-47.0); Hemoglobin 11.3 g/dL (11.5-15.3); Mean Corpuscular HGB Conc 30.6 g/dL (30.0-36.0); Monocytes # 0.5 10^3/uL (0.2-0.9); Monocytes % 10.4 %; Neutrophils # 3.24 10^3/uL (1.8-7.7); Neutrophils % 66.2 %; Nucleated Red Blood Cells % 0 %; Platelet Count 200 10^3/cmm (130-400); Red Blood Count 4.34 10^6/uL (4.1-5.3); White Blood Count 4.9 10^3/uL (4.0-10.0)
[2022-04-25 09:02] LABS: Alanine Aminotransferase 18 U/L (0-33); Albumin Level 4.2 g/dL (3.5-5.2); Alkaline Phosphatase 66 U/L (35-105); Aspartate Amino Transferase 19 U/L (0-32); Blood Urea Nitrogen 21 mg/dL (6-20); Calcium 10.3 mg/dL (8.5-10.5); Carbon Dioxide 26 mmol/L (22-29); Chloride 102 mmol/L (98-107); Globulin 2.4 g/dL (1.3-4.6); Glomerular Filtration Rate 89.7 mL/min (90-130); Glucose 132 mg/dL (65-115); Osmolality Calculated 293 mOsm/kg (285-295); Sodium 139 mmol/L (136-145); Total Bilirubin 0.3 mg/dL (0.15-1.2); Total Protein 6.6 g/dL (6.6-8.7)
[2022-04-25 09:04] LABS: Anion Gap 15.1 (5-19); Potassium 4.1 mmol/L (3.5-5.1)
[2022-04-25] MEDS: dextrose 5% 250 ML 75 ML IV (10:20)
[2022-04-25] MEDS: palonosetron 0.25 mg/5 mL SDV IVP (10:21)
[2022-04-25] MEDS: leucovorin 850 MG in dextrose 5% 250 ML 62.5 MG IV (11:11)
[2022-04-25] MEDS: oxaliplatin 160 MG in dextrose 5% 250 ML 70.5 MG IV (11:11)
[2022-04-25] MEDS: fluorouraciL 50 mg/ml MDV 100 mL 850 MG IVP (15:06)
[2022-04-25] MEDS: fluorouraciL 5,100 MG, elastomeric pump 1 PUMP in sodium chloride 0.9% (100 ml) 128 ML IV (15:06)
[2022-04-25 15:15] VITALS: BP 121/74; PULSE 93; RESP 16; TEMP 36.4; O2SAT 95
[2022-04-27 11:38] VITALS: BP 123/82; PULSE 76; RESP 18; TEMP 36.4; O2SAT 97
[2022-05-09] MEDS: alteplase 1 mg/mL SDV 2 mL 2 MG INTRACATH (08:38)
[2022-05-09 08:51] LABS: Basophils % 0.2 %; Eosinophils # 0.1 10^3/uL (0.0-0.8); Eosinophils % 1.8 %; Hematocrit 38.5 % (37.0-47.0); Hemoglobin 11.7 g/dL (11.5-15.3); Lymphocytes # 1.3 10^3/uL (0.8-4.8); Lymphocytes % 30.2 %; Mean Corpuscular HGB Conc 30.4 g/dL (30.0-36.0); Mean Corpuscular Hemoglobin 25.9 pg (28.0-34.0); Mean Corpuscular Volume 85.2 fl (81-99); Mean Platelet Volume 8.8 fL (7.4-10.4); Monocytes # 0.5 10^3/uL (0.2-0.9); Monocytes % 11.8 %; Neutrophils # 2.45 10^3/uL (1.8-7.7); Neutrophils % 55.8 %; Nucleated Red Blood Cells % 0 %; Platelet Count 181 10^3/cmm (130-400); Red Blood Count 4.52 10^6/uL (4.1-5.3); White Blood Count 4.4 10^3/uL (4.0-10.0)
[2022-05-09 09:35] LABS: Alanine Aminotransferase 19 U/L (0-33); Alkaline Phosphatase 68 U/L (35-105); Aspartate Amino Transferase 19 U/L (0-32); Blood Urea Nitrogen 25 mg/dL (6-20); Calcium 9.9 mg/dL (8.5-10.5); Carbon Dioxide 25 mmol/L (22-29); Chloride 101 mmol/L (98-107); Globulin 2.9 g/dL (1.3-4.6); Glomerular Filtration Rate 107.2 mL/min (90-130); Glucose 127 mg/dL (65-115); Osmolality Calculated 286 mOsm/kg (285-295); Sodium 135 mmol/L (136-145); Total Bilirubin 0.3 mg/dL (0.15-1.2); Total Protein 6.9 g/dL (6.6-8.7)
[2022-05-09] MEDS: dextrose 5% 250 ML 75 ML IV (10:11)
[2022-05-09] MEDS: FUROsemide 10 mg/mL SDV 4mL 40 MG IVP (10:13)
[2022-05-09] MEDS: oxaliplatin 160 MG in dextrose 5% 250 ML 70.5 MG IV (11:00)
[2022-05-09] MEDS: leucovorin 850 MG in dextrose 5% 250 ML 62.5 MG IV (11:00)
[2022-05-09] MEDS: fluorouraciL 50 mg/ml MDV 100 mL 850 MG IVP (14:41)
[2022-05-09] MEDS: fluorouraciL 5,100 MG, elastomeric pump 1 PUMP in sodium chloride 0.9% (100 ml) 128 ML IV (14:41)
[2022-05-09 14:49] VITALS: BP 115/69; PULSE 91; RESP 16; TEMP 35.9; O2SAT 94
[2022-05-11 11:39] VITALS: BP 112/75; PULSE 84; RESP 16; TEMP 36.3; O2SAT 96
== END 2022-05-15 23:59 | disposition home or self-care (01) ==
PROVIDERS: PCP Internal Medicine; Visit Provider Internal Medicine Hematology & Oncology
DX: Z45.2 Encounter for adjustment and management of vascular access device (principal)
CPT/HCPCS: 36593; 80053; 85025; 96368; 96375; 96413; 96415; 96416; 96523; 99214; J0640; J1100; J1940; J2469; J2997; J7060; J9190; J9263

== ENCOUNTER 2022-05-24 09:16 | Outpatient (CLI) | payer BC, MEDICAID, SELFPAY ==
--- NOTE | 2022-05-24 10:00 | USCV_ITS ---
Roxie Case Age: 47 Gender: F : 1975 Exam Date: 05/24/2022 10:07 Ordering Phys: Dayana Cabrera NP Technologist: BECKY Exam Location: [facility] [place] Indication: FLUID RETENTION, ON CHEMO BP: 112 / 67 HR: 83 Rhythm: Sinus Technical Quality: Adequate MEASUREMENTS (Male / Female) Normal Values 2D ECHO LVOT Diameter 2.0 cm LV Ejection Fraction MOD 2C 45.9 % LV Ejection Fraction 2C AL 47.9 % LA Diameter 3.0 cm LA Width 2.6 cm LA Height 4.4 cm RA Width 2.5 cm RA Height 4.5 cm Aorta at Sinotubular Diameter 2.2 cm IVC Diameter 1.7 cm M-MODE Aortic Annulus Diameter 2.3 cm LA Ao Ratio MM 1.3 MV E Point Septal Separation 0.7 cm DOPPLER AV Peak Velocity 157.0 cm/s LVOT Peak Velocity 125.0 cm/s AV Area Cont Eq vti 2.5 cm squared AV Area Cont Eq pk 2.5 cm squared MV Peak Velocity 89.0 cm/s MV Area PHT 3.9 cm squared Mitral E to A Ratio 0.5 MV E' Velocity 36.5 cm/s Mitral E to MV E' Ratio 5.2 Mitral E to LV E' Lateral Ratio 4.6 Mitral E to LV E' Septal Ratio 6.2 TR Peak Velocity 137.1 cm/s TR Peak Gradient 7.5 mmHg TR Mean Velocity 102.9 cm/s TR Mean Gradient 4.6 mmHg TR Velocity Time Integral 33.0 cm TV Peak E Velocity 41.0 cm/s Right Atrial Pressure 3.0 mmHg Pulmonary Artery Systolic Pressu 10.5 mmHg PV Peak Velocity 100.0 cm/s RV Acceleration Time 0.2 s RV Ejection Time 0.3 s RV AcT/ET 0.6 FINDINGS Left Ventricle Mildly increased left ventricular cavity size. Normal left ventricular wall thickness. Mildly decreased left ventricular systolic function. Grade I/IV diastolic dysfunction (abnormal relaxation filling pattern), normal to mildly elevated filling pressures. Left ventricular ejection fraction is estimated at 40 %. Right Ventricle Normal right ventricular size and systolic function. Normal right ventricular systolic pressure. Right Atrium The right atrium is normal in size. Left Atrium Mildly increased left atrial size. Mitral Valve Structurally normal mitral valve without significant stenosis or prolapse. There is no mitral regurgitation. Aortic Valve Structurally normal aortic valve without significant sclerosis or stenosis. There is no aortic regurgitation. Tricuspid Valve Structurally normal tricuspid valve without significant stenosis or regurgitation. Pulmonary artery systolic pressure is normal. Pulmonic Valve Pulmonic valve not well visualized. Pericardium Normal pericardium without effusion. Aorta Normal ascending aorta dimension. IVC Inferior vena cava not visualized. CONCLUSIONS Mildly increased left ventricular cavity size. Normal left ventricular wall thickness. Mildly decreased left ventricular systolic function. Grade I/IV diastolic dysfunction (abnormal relaxation filling pattern), normal to mildly elevated filling pressures. Left ventricular ejection fraction is estimated at 40 %. Mildly increased left atrial size. When compared to the previous study done 08/28/2019, the left ventricle and left atrium are slightly enlarged and the left ventricular ejection fraction has decreased from 58% to 40%. Dr. Dex Layne MD (Electronically Signed) Final Date: 24 May 2022 17:59 S
== END 2022-05-24 09:17 | disposition home or self-care (01) ==
LOC: RAD 09:19
PROVIDERS: PCP Internal Medicine; Visit Provider Nurse Practitioner
DX: C20 Malignant neoplasm of rectum (principal); I10 Essential (primary) hypertension; I51.89 Other ill-defined heart diseases; I51.7 Cardiomegaly
CPT/HCPCS: 93306

== ENCOUNTER 2022-05-29 07:49 | Oncology outpatient (recurring) (ONCR) | payer BC, MEDICAID, SELFPAY ==
[2022-05-29 08:37] LABS: Basophils % 0.6 %; Eosinophils # 0.1 10^3/uL (0.0-0.8); Eosinophils % 1.5 %; Hematocrit 37.5 % (37.0-47.0); Hemoglobin 11.7 g/dL (11.5-15.3); Lymphocytes # 1.1 10^3/uL (0.8-4.8); Lymphocytes % 32.7 %; Mean Corpuscular HGB Conc 31.2 g/dL (30.0-36.0); Mean Corpuscular Hemoglobin 26.3 pg (28.0-34.0); Mean Corpuscular Volume 84.3 fl (81-99); Mean Platelet Volume 9.4 fL (7.4-10.4); Monocytes # 0.5 10^3/uL (0.2-0.9); Monocytes % 14.9 %; Neutrophils # 1.67 10^3/uL (1.8-7.7); Neutrophils % 49.7 %; Nucleated Red Blood Cells % 0 %; Platelet Count 227 10^3/cmm (130-400); Red Blood Count 4.45 10^6/uL (4.1-5.3); Red Cell Distribution Width 15.9 % (12.1-15.1); White Blood Count 3.4 10^3/uL (4.0-10.0)
[2022-05-29 08:51] LABS: Alanine Aminotransferase 19 U/L (0-33); Alkaline Phosphatase 73 U/L (35-105); Anion Gap 13.9 (5-19); Aspartate Amino Transferase 17 U/L (0-32); Blood Urea Nitrogen 21 mg/dL (6-20); Calcium 9.6 mg/dL (8.5-10.5); Carbon Dioxide 27 mmol/L (22-29); Chloride 100 mmol/L (98-107); Creatinine Clr Calc Pharmacy 121.1975; Globulin 2.7 g/dL (1.3-4.6); Glomerular Filtration Rate 89.7 mL/min (90-130); Glucose 239 mg/dL (65-115); Osmolality Calculated 295 mOsm/kg (285-295); Potassium 3.9 mmol/L (3.5-5.1); Sodium 137 mmol/L (136-145); Total Bilirubin 0.3 mg/dL (0.15-1.2); Total Protein 6.7 g/dL (6.6-8.7)
== END 2022-06-15 23:59 | disposition home or self-care (01) ==
LOC: ONCMED 07:49
PROVIDERS: Nurse Practitioner; PCP Internal Medicine; Visit Provider Internal Medicine Hematology & Oncology
DX: C18.9 Malignant neoplasm of colon, unspecified (principal); Z95.828 Presence of other vascular implants and grafts
CPT/HCPCS: 36591; 80053; 85025

== ENCOUNTER → 2022-06-04 16:31 | Outpatient (BNVA) | payer BC, MEDICAID, SELFPAY | PROVIDERS: PCP Internal Medicine; Visit Provider Internal Medicine Cardiovascular Disease | DX: I50.9 Heart failure, unspecified (principal); I42.9 Cardiomyopathy, unspecified; N18.9 Chronic kidney disease, unspecified; R06.02 Shortness of breath | CPT/HCPCS: 36415; 80048; 83880; 84443; 84484 ==

== ENCOUNTER 2022-07-13 06:30 | Outpatient (CLI) | payer BC, MEDICAID, SELFPAY ==
--- NOTE | 2022-07-13 | ECG_ITS ---
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 Interpretive Statements NAME OF STUDY: LEXISCAN SESTAMIBI STRESS TEST INDICATION: Cardiomyopathy, PROCEDURE: At the baseline, the EKG revealed normal sinus rhythm with a poor R wave progression. Some nonspecific T wave changes. Possible old anteroseptal NH. The baseline heart was 87 bpm with a blood pressue of 124/78 mm of Hg Lexiscan was infused over a period of 20 seconds. A total of 0.4 milligrams of Lexiscan was infused. The stress phase was continued for a total of 5 minutes. Heart rate at the end of the stress phase was 92 bpm with a blood pressure 132/76 mm of Hg. The EKG at the peak infusion revealed no significant changes. Sestamibi was injected 20 seconds after the Lexiscan infusion. Heart rate at the end of the recovery phase was 91 bpm with a blood pressure of 128/71 mm of Hg. CONCLUSION: 1. No significant EKG changes with the LexiScan infusion 2. No LexiScan induced chest pain or cardiac arrhythmia 3. Normal blood pressure and heart rate response 4. Sestamibi/sestamibi perfusion scan pending; see separate report. Electronically Signed On 07-16-2022 11:45:40 CDT by Bassem Salazar M.D. [email or web address]
[2022-07-13 06:59] VITALS: BMI 42.9
--- NOTE | 2022-07-13 07:03 | NMCV_ITS ---
NM christiano perf SPECT r/s* [id number] Roxie Case Age: 47 Gender: F : 1975 Exam Date: 07/13/2022 07:03 Ordering Phys: Bassem Salazar MD ([email or web address]) Technologist: ISAÍAS Davenport Exam Location: [facility] Indications: CORONARY ANGIOPLASTY STATUS STRESS TEST Please see separate stress test report in [facility] for full findings IMAGE PROTOCOL Rest/Stress 1 Lexiscan Day Radiopharmaceutical Dose (mCi) Administration Site Administered by Rest: Tc-99m 10.9 IV ISAÍAS Prince Sestamibi Stress:Tc-99m 32.6 IV ISAÍAS Prince Sestamibi Rest: 13-Jul-2022 60 Discovery 630 Stress: 13-Jul-2022 30 Discovery 630 0.4mg Lexiscan. Images obtained in supine and prone position. SPECT RESULTS Technical Quality: Excellent Raw Data Analysis: Normal Image Corrections: No attenuation or motion correction applied Summed Stress Score: 3 Summed Rest Score: 9 Summed Difference Score: 0 PERFUSION FINDINGS Small area of minimal to moderate decreases uptake was noted in the mid and apical inferior wall region, with no significant reversibility. FUNCTIONAL RESULTS (calculated via Gated SPECT) Stress Image LV EF (%): 66 Stress EDV (mL):93 TID: 1.16 Stress ESV (mL):32 FUNCTIONAL FINDINGS: Segmental wall motion analysis revealing mild diffuse hypokinesia of the septum IMPRESSIONS 1. Myocardial perfusion imaging revealing small area of persistent decreased tracer uptake involving the mid inferior and apical inferior regions suggesting myocardial scarring versus attenuation artifact. 2. Normal LV ejection fraction 66%. 3. LV wall motion analysis revealing mild diffuse hypokinesia of the septum. 4. Normal LV volume. Slightly elevated transient ischemic dilatation ratio of 1.16 may suggest endocardial ischemia. However the positive predictive value of this finding is limited. Clinical correlation recommended Compared to the study from 06/05/2019, the LV ejection fraction is improved. Dr Bassem Salazar MD FAC (Electronically Signed) Final Date: 13 July 2022 16:45 S
[2022-07-13] MEDS: regadenoson 0.4 Mg/5 ml Syringe IVP (08:10)
[2022-07-13 08:54] VITALS: BP 128/71; PULSE 93
== END 2022-07-13 06:31 | disposition home or self-care (01) ==
LOC: CDL 06:31
PROVIDERS: PCP Internal Medicine; Visit Provider Internal Medicine Cardiovascular Disease
DX: I42.9 Cardiomyopathy, unspecified (principal)
CPT/HCPCS: 36415; 78452; 93017; 96374; A9500; J2785

== ENCOUNTER 2022-07-24 06:55 | Outpatient (CLI) | payer BC, MEDICAID, SELFPAY ==
--- NOTE | 2022-07-24 07:15 | USCV_ITS ---
Roxie Case Age: 47 Gender: F : 1975 Exam Date: 07/24/2022 07:18 Ordering Phys: Bassem Salazar MD ([email or web address]) Technologist: CT Exam Location: [facility] [place] Indication: chemotherapy BP: 108 / 80 HR: 88 Rhythm: Sinus Technical Quality: Adequate MEASUREMENTS (Male / Female) Normal Values 2D ECHO LV Diastolic Diameter PLAX 4.0 cm 4.2 - 5.9 / 3.9 - 5.3 cm LV Systolic Diameter PLAX 2.3 cm IVS Diastolic Thickness 0.9 cm 0.6 - 1.0 / 0.6 - 0.9 cm IVS Systolic Thickness 1.8 cm LVPW Diastolic Thickness 1.2 cm 0.6 - 1.0 / 0.6 - 0.9 cm LVPW Systolic Thickness 1.9 cm LVOT Diameter 2.2 cm LV Ejection Fraction 2D Teich 73.8 % LV Ejection Fraction MOD 2C 61.7 % LV Ejection Fraction 2C AL 62.2 % LA Diameter 3.2 cm IVC Diameter 1.5 cm M-MODE Aortic Annulus Diameter 3.1 cm LA Ao Ratio MM 1.2 MV E Point Septal Separation 0.6 cm FINDINGS Left Ventricle Normal left ventricular size and systolic function, EF 63 %. No regional wall motion abnormalities. Right Ventricle The right ventricle is normal in size and function. Right Atrium The right atrium is normal in size. Left Atrium The left atrium is normal in size. Mitral Valve No gross abnormalities noted Aortic Valve No gross abnormalities noted Tricuspid Valve No gross abnormalities noted Pulmonic Valve No gross abnormalities noted Pericardium Normal pericardium without effusion. Aorta Normal ascending aorta dimension. IVC The inferior vena cava appears normal. The CONCLUSIONS Normal left ventricular size and systolic function, EF 63 %. No regional wall motion abnormalities. No gross morphologic abnormalities of the valve Normal cardiac chamber sizes. No intracardiac masses. No pericardial effusion. Comparison with the previous study from 05/24/2022 is difficult because of the differences in technical quality. The ejection fraction appears to have improved. Dr Bassem Salazar MD FAC (Electronically Signed) Final Date: 26 Jul 2022 09:16 S
== END 2022-07-24 06:56 | disposition home or self-care (01) ==
PROVIDERS: PCP Internal Medicine; Visit Provider Internal Medicine Cardiovascular Disease
DX: I42.9 Cardiomyopathy, unspecified (principal); I50.9 Heart failure, unspecified; C18.9 Malignant neoplasm of colon, unspecified
CPT/HCPCS: 93308

== ENCOUNTER → 2022-07-26 12:35 | Outpatient (BNVA) | payer BC, MEDICAID, SELFPAY | PROVIDERS: PCP Internal Medicine; Visit Provider Internal Medicine Cardiovascular Disease | DX: R06.02 Shortness of breath (principal) | CPT/HCPCS: 36415; 80048 ==

== ENCOUNTER 2022-07-27 10:10 | Oncology outpatient (recurring) (ONCR) | payer BC, MEDICAID, SELFPAY | END 2022-08-15 23:59 | disposition home or self-care (01) | PROVIDERS: PCP Internal Medicine; Visit Provider Internal Medicine Hematology & Oncology | DX: Z95.828 Presence of other vascular implants and grafts; Z45.2 Encounter for adjustment and management of vascular access device | CPT/HCPCS: 96374; J1642 ==

== ENCOUNTER 2022-08-24 06:45 | Outpatient (CLI) | payer BC, MEDICAID, SELFPAY ==
[2022-08-24] MEDS: iohexol 350 mg/mL 500 mL Btl (per mL) IV (07:39)
[2022-08-24] MEDS: iohexol 350 mg/mL 500 mL Btl (per mL) PO (07:39)
--- NOTE | 2022-08-24 08:00 | CT_ITS ---
WS: [id number] CT ABDOMEN PELVIS TECHNIQUE: Contrast-enhanced CT of the abdomen and pelvis with coronal and sagittal reformatted image s. CLINICAL INFORMATION: follow up COMPARISON: Outside MRI pelvis CT . CT abdomen pelvis from [facility] June 15. Outside reports not currently available DLP: 1066.[address] scans at [facility] use at least one of these dose optimization techniques: automated e xposure control; mA and/or kV adjustment per patient size (includes targeted exams where dose is matc hed to clinical indication); or iterative reconstruction. FINDINGS: Prior postoperative changes hysterectomy. Evidence of prior sigmoid resection with anastomosis. No ev idence of acute diverticulitis or recurrent obstructive mass or lesion. Mild fecal retention RIGHT co ailin and transverse colon. Mild diffuse fatty infiltration the liver. Normal gallbladder. Normal splee n. Small esophageal hiatal hernia. Lung bases are well aerated. LEFT adrenal lesion likely adenoma measuring 1.8 cm unchanged. Normal renal parenchymal enhancement. No hydronephrosis. Tiny RIGHT renal cysts. Normal pancreatic parenchymal enhancement. Portal vein and splenic vein are patent. Normal GE junction. Fat-containing umbilical hernia. No herniated bowel. Normal caliber abdominal aorta. No abdominal or pelvic lymphadenopathy. CT/CT abdomen pelvis w con* [id number] IMPRESSION: 1. No evidence of recurrent or progressive disease. 2. Prior low sigmoid resection with anastomosis. Sigmoid colon otherwise dania l in appearance with a few diverticuli. 3. Prior hysterectomy. 4. Diffuse fatty infiltration liver. 5. Low-attenuation LEFT adrenal lesion measuring 1.8 cm is unchanged likely ad renal adenoma. This is also unchanged since 2010. 6. No hydronephrosis in either kidney. 7. Fat-containing umbilical hernia. 8. No other suspicious findings.
== END 2022-08-24 06:46 | disposition home or self-care (01) ==
LOC: RAD 06:47
PROVIDERS: PCP Internal Medicine; Visit Provider Internal Medicine Hematology & Oncology
DX: C18.9 Malignant neoplasm of colon, unspecified (principal); K76.0 Fatty (change of) liver, not elsewhere classified; K42.9 Umbilical hernia without obstruction or gangrene; E27.9 Disorder of adrenal gland, unspecified
CPT/HCPCS: 74177; Q9967

== ENCOUNTER 2022-08-31 11:44 | Oncology outpatient (recurring) (ONCR) | payer BC, MEDICAID, SELFPAY ==
[2022-08-31 09:28] VITALS: BP 124/81; PULSE 77; RESP 18; TEMP 36.3; O2SAT 97
[2022-08-31 09:45] LABS: Basophils % 0.7 %; Eosinophils # 0.1 10^3/uL (0.0-0.8); Eosinophils % 2.3 %; Hematocrit 38.2 % (37.0-47.0); Hemoglobin 12.2 g/dL (11.5-15.3); Lymphocytes # 1.3 10^3/uL (0.8-4.8); Lymphocytes % 29.7 %; Mean Corpuscular HGB Conc 31.9 g/dL (30.0-36.0); Mean Corpuscular Hemoglobin 27.1 pg (28.0-34.0); Mean Corpuscular Volume 84.9 fl (81-99); Mean Platelet Volume 9.4 fL (7.4-10.4); Monocytes # 0.4 10^3/uL (0.2-0.9); Monocytes % 9.6 %; Neutrophils # 2.44 10^3/uL (1.8-7.7); Nucleated Red Blood Cells % 0 %; Platelet Count 259 10^3/cmm (130-400); White Blood Count 4.3 10^3/uL (4.0-10.0)
[2022-08-31 10:10] LABS: Carcinoembryonic Antigen 0.8 ng/mL (0.0-4.7)
[2022-08-31 10:21] LABS: Alanine Aminotransferase 22 U/L (0-33); Albumin Level 4.1 g/dL (3.5-5.2); Alkaline Phosphatase 65 U/L (35-105); Anion Gap 16.6 (5-19); Aspartate Amino Transferase 18 U/L (0-32); Blood Urea Nitrogen 21 mg/dL (6-20); Calcium 9.7 mg/dL (8.5-10.5); Carbon Dioxide 25 mmol/L (22-29); Chloride 99 mmol/L (98-107); Globulin 2.7 g/dL (1.3-4.6); Glomerular Filtration Rate 89.7 mL/min (90-130); Glucose 132 mg/dL (65-115); Osmolality Calculated 287 mOsm/kg (285-295); Potassium 4.6 mmol/L (3.5-5.1); Sodium 136 mmol/L (136-145); Total Bilirubin 0.3 mg/dL (0.15-1.2); Total Protein 6.8 g/dL (6.6-8.7)
== END 2022-09-14 23:59 | disposition home or self-care (01) ==
PROVIDERS: PCP Internal Medicine; Visit Provider Internal Medicine Hematology & Oncology
DX: C18.9 Malignant neoplasm of colon, unspecified (principal); C20 Malignant neoplasm of rectum; Z79.52 Long term (current) use of systemic steroids; Z79.899 Other long term (current) drug therapy; C77.8 Secondary and unspecified malignant neoplasm of lymph nodes of multiple regions; G62.0 Drug-induced polyneuropathy; T45.1X5A Adverse effect of antineoplastic and immunosuppressive drugs, initial encounter; K59.03 Drug induced constipation
CPT/HCPCS: 36591; 80053; 82378; 85025; J1642

== ENCOUNTER 2022-09-28 08:08 | Oncology outpatient (recurring) (ONCR) | payer BC, MEDICAID, SELFPAY ==
[2022-09-28 08:20] VITALS: BP 130/84; PULSE 101; RESP 18; TEMP 36.7; O2SAT 95
== END 2022-10-15 23:59 | disposition home or self-care (01) ==
PROVIDERS: PCP Internal Medicine; Visit Provider Internal Medicine Hematology & Oncology
DX: Z45.2 Encounter for adjustment and management of vascular access device (principal); Z95.828 Presence of other vascular implants and grafts
CPT/HCPCS: 96523; J1642

== ENCOUNTER 2022-11-06 14:20 | Outpatient (CLI) | payer BC, MEDICAID, SELFPAY ==
--- NOTE | 2022-11-06 14:24 | CT_ITS ---
WS: [id number] CT ABDOMEN AND PELVIS WITH CONTRAST HISTORY: follow up, history of colon cancer. TECHNIQUE: Imaging performed of the abdomen and pelvis with IV contrast. Single phase imaging of the abdomen. Coronal and sagittal reformats are submitted. All CT scans at [facility] use at [facility] [address] one of these dose optimization techniques: automated exposure control; mA and/or kV adjustment per patient size (includes targeted exams where dose is matched to clinical indication); or iterative re construction. IV CONTRAST: Omnipaque 350; 100 mL IV. Oral contrast: Yes. DLP: 1098.73 mGy COMPARISON: 08/24/2022 Lower thorax: Lung bases are clear. Heart is normal size. No hiatal hernia. Liver/biliary system: Mild hepatomegaly and hepatic steatosis. No bile duct dilatation or mass. Gali l portal vein. Gallbladder: Normal. No gallstones or wall thickening. No pericholecystic fluid. Pancreas: Normal size pancreas and pancreatic duct. No adjacent inflammation. Spleen: Normal size spleen. No mass or infarct. Adrenal glands: Normal RIGHT adrenal gland. Reidentified 1.8 cm mass in the LEFT adrenal gland. No in crease in size since 2010. Consistent with benign adenoma. Right kidney: No interval change. No solid mass. Left kidney: Normal. Aorta: Mild atherosclerosis with no aneurysm. Lymphadenopathy: None. Free fluid: None. GI tract: Minimally distended stomach. No small bowel obstruction. Moderate fecal retention and const ipation. Appendix is not definitely identified. Anastomotic sutures are noted near the rectosigmoid j unction. No recurrent mass or adenopathy. No diverticulitis. Abdominal wall: Fat-containing umbilical hernia. Pelvis: No free fluid or adenopathy within the pelvis. Hysterectomy. Bones: No destructive bone lesions. IMPRESSION: 1. Stable rectosigmoid anastomosis. No recurrent mass or adenopathy. 2. No diverticulitis. 3. Hepatic steatosis and hepatomegaly. 4. Mild diffuse constipation. 5. Stable fat-containing umbilical hernia. 6. Stable LEFT adrenal mass since 2010. Consistent with an adenoma.
[2022-11-06] MEDS: iohexol 350 mg/mL 500 mL Btl (per mL) PO (15:11)
[2022-11-06] MEDS: iohexol 350 mg/mL 500 mL Btl (per mL) IV (15:58)
== END 2022-11-06 14:21 | disposition home or self-care (01) ==
PROVIDERS: PCP Internal Medicine; Visit Provider Internal Medicine Hematology & Oncology
DX: Z85.038 Personal history of other malignant neoplasm of large intestine (principal); Z98.0 Intestinal bypass and anastomosis status; Z90.49 Acquired absence of other specified parts of digestive tract; K76.0 Fatty (change of) liver, not elsewhere classified; R16.0 Hepatomegaly, not elsewhere classified; K59.00 Constipation, unspecified; K42.9 Umbilical hernia without obstruction or gangrene; E27.9 Disorder of adrenal gland, unspecified
CPT/HCPCS: 74177; Q9967

== ENCOUNTER 2022-11-06 15:30 | Oncology outpatient (recurring) (ONCR) | payer BC, MEDICAID, SELFPAY ==
[2022-10-26 08:09] VITALS: BP 157/95; PULSE 86; RESP 18; TEMP 36.4; O2SAT 97
== END 2022-11-15 23:59 | disposition home or self-care (01) ==
PROVIDERS: PCP Internal Medicine; Visit Provider Internal Medicine Hematology & Oncology
DX: Z45.2 Encounter for adjustment and management of vascular access device
CPT/HCPCS: 96523; J1642

== ENCOUNTER 2022-12-03 08:58 | Oncology outpatient (recurring) (ONCR) | payer BC, MEDICAID, SELFPAY ==
[2022-12-03 09:29] VITALS: BP 119/78; PULSE 84; RESP 16; TEMP 37; O2SAT 99
[2022-12-03 09:48] LABS: Basophils % 0.4 %; Eosinophils # 0.1 10^3/uL (0.0-0.8); Eosinophils % 1.1 %; Hematocrit 37.1 % (36-47); Lymphocytes # 1.1 10^3/uL (0.8-4.8); Mean Corpuscular HGB Conc 32.9 g/dL (30-55); Mean Corpuscular Hemoglobin 28.8 pg (27-33); Mean Corpuscular Volume 87.5 fl (85-98); Mean Platelet Volume 8.9 fL (7.4-10.4); Monocytes # 0.4 10^3/uL (0.2-0.9); Monocytes % 7.8 %; Neutrophils # 2.89 10^3/uL (1.8-7.7); Neutrophils % 64.6 %; Nucleated Red Blood Cells % 0 %; Platelet Count 193 10^3/cmm (157-399); Red Blood Count 4.24 10^6/uL (3.85-5.65); Red Cell Distribution Width 14.4 % (12.1-15.1); White Blood Count 4.48 10^3/uL (3.29-11.43)
[2022-12-03 10:14] LABS: Carcinoembryonic Antigen 0.5 ng/mL (0.0-4.7)
[2022-12-03 10:25] LABS: Alanine Aminotransferase 20 U/L (0-33); Albumin Level 4.2 g/dL (3.5-5.2); Alkaline Phosphatase 77 U/L (35-105); Anion Gap 17.6 (5-19); Aspartate Amino Transferase 14 U/L (0-32); Blood Urea Nitrogen 18 mg/dL (6-20); Calcium 9.6 mg/dL (8.5-10.5); Carbon Dioxide 24 mmol/L (22-29); Chloride 98 mmol/L (98-107); Globulin 2.3 g/dL (1.3-4.6); Glomerular Filtration Rate 67.1 mL/min (90-130); Glucose 241 mg/dL (65-115); Osmolality Calculated 292 mOsm/kg (285-295); Potassium 3.6 mmol/L (3.5-5.1); Sodium 136 mmol/L (136-145); Total Bilirubin 0.4 mg/dL (0.15-1.2); Total Protein 6.5 g/dL (6.6-8.7)
== END 2022-12-15 23:59 | disposition home or self-care (01) ==
PROVIDERS: PCP Internal Medicine; Visit Provider Internal Medicine Medical Oncology
DX: C18.9 Malignant neoplasm of colon, unspecified (principal)
CPT/HCPCS: 36591; 80053; 82378; 85025

== ENCOUNTER 2023-02-28 10:36 | Oncology outpatient (recurring) (ONCR) | payer BC, MEDICAID, SELFPAY ==
[2023-02-28 11:15] VITALS: BP 123/81; PULSE 90; RESP 16; TEMP 36.6; O2SAT 96
[2023-02-28 11:22] LABS: Basophils % 0.4 %; Eosinophils # 0.1 10^3/uL (0.0-0.8); Lymphocytes # 1.4 10^3/uL (0.8-4.8); Mean Corpuscular HGB Conc 33.2 g/dL (30-55); Mean Corpuscular Volume 87.4 fl (85-98); Mean Platelet Volume 8.8 fL (7.4-10.4); Monocytes # 0.5 10^3/uL (0.2-0.9); Monocytes % 9.4 %; Neutrophils # 3.05 10^3/uL (1.8-7.7); Neutrophils % 59.6 %; Nucleated Red Blood Cells % 0 %; Platelet Count 271 10^3/cmm (157-399); Red Blood Count 4.69 10^6/uL (3.85-5.65); Red Cell Distribution Width 13.4 % (12.1-15.1); White Blood Count 5.11 10^3/uL (3.29-11.43)
[2023-02-28 11:43] LABS: Alanine Aminotransferase 25 U/L (0-33); Albumin Level 4.6 g/dL (3.5-5.2); Alkaline Phosphatase 60 U/L (35-105); Anion Gap 14.5 (5-19); Aspartate Amino Transferase 19 U/L (0-32); Blood Urea Nitrogen 26 mg/dL (6-20); Calcium 10.1 mg/dL (8.5-10.5); Carbon Dioxide 30 mmol/L (22-29); Chloride 100 mmol/L (98-107); Globulin 2.6 g/dL (1.3-4.6); Glomerular Filtration Rate 76.6 mL/min (90-130); Glucose 105 mg/dL (65-115); Osmolality Calculated 295 mOsm/kg (285-295); Potassium 4.5 mmol/L (3.5-5.1); Sodium 140 mmol/L (136-145); Total Bilirubin 0.6 mg/dL (0.15-1.2); Total Protein 7.2 g/dL (6.6-8.7)
[2023-02-28] MEDS: alteplase 1 mg/mL SDV 2 mL 2 MG INTRACATH (11:46)
[2023-02-28 13:56] LABS: Carcinoembryonic Antigen 0.4 ng/mL (0.0-4.7)
== END 2023-03-17 23:59 | disposition home or self-care (01) ==
PROVIDERS: PCP Internal Medicine; Visit Provider Internal Medicine Medical Oncology
DX: C18.9 Malignant neoplasm of colon, unspecified (principal); Z95.828 Presence of other vascular implants and grafts; Z45.2 Encounter for adjustment and management of vascular access device; Z79.899 Other long term (current) drug therapy
CPT/HCPCS: 36591; 36593; 80053; 82378; 85025; J2997